=== PATIENT | male | born 1945 | race Caucasian/White ===

== ENCOUNTER 2019-12-29 06:47 | Inpatient (IN) | payer OTHER ==
[~2019-12-29] VITALS: Ht 180.3 cm; Wt 100.3 kg
[2019-12-29 09:18] LABS: Basophils # (auto) 0 10 ^3/uL (0-0.2); Basophils % (auto) 0.1 % (0.0-2.0); Eosinophils # (auto) 0 10 ^3/uL (0-0.8); Eosinophils % (auto) 0.1 % (0.0-7.0); Hematocrit 46.3 % (41.0-53.0); Hemoglobin 15.1 g/dL (13.5-17.5); Lymphocytes # (auto) 0.6 10 ^3/uL (0.4-5.4); Lymphocytes % (auto) 3.9 % (10.0-50.0); Mean Corpuscular Hemoglobin 29.3 pg (28.0-32.0); Mean Corpuscular Hgb Conc. 32.6 g/dL (32.0-36.0); Mean Corpuscular Volume 90.1 fL (80.0-100.0); Monocytes # (auto) 1.1 10 ^3/uL (0-1.3); Neutrophils # (auto) 13.9 10 ^3/uL (1.6-8.6); Neutrophils % (auto) 88.9 % (37.0-80.0); Platelet Count (auto) 215 10^3/uL (140-450); Red Blood Cells 5.14 10^6/uL (4.5-5.90); Red Cell Distribution Width 13.7 % (11.8-14.3); White Blood Cell 15.6 10^3/uL (4.4-10.8)
[2019-12-29 09:32] LABS: Lactic Acid w/Reflex 2.4 mmol/L (0.4-2.0)
[2019-12-29] MEDS ORDERED: MORPHINE SULF INJ 2 MG/ML SYRINGE 1ML IV ONE (09:45)
[2019-12-29] MEDS ORDERED: ONDANSETRON HCL 4 MG/2 ML VIAL IV ONE (09:45)
[2019-12-29 10:29] LABS: Urine WBC None Seen /hpf (0 - 3)
[2019-12-29 10:45] LABS: Urine Bacteria NONE SEEN /hpf (None Seen); Urine Blood Negative /uL (Negative); Urine Specific Gravity 1.028 (1.001-1.035)
[2019-12-29] MEDS ORDERED: PIPERACILLIN-TAZOB 3.375GM 100 ML IV ONE (10:45)
[2019-12-29] MEDS ORDERED: SODIUM CHLORIDE 0.9% 1,000 ML IV ONE ×3 (10:45→14:15)
[2019-12-29] MEDS ORDERED: metroNIDAZOLE 500MG/100ML 100 ML IV ONE ×2 (10:45→14:15)
[2019-12-29] MEDS ORDERED: POVIDONE IODINE 10 % TOPICAL OINT 30GM TOP ONE (11:01)
[2019-12-29 11:22] LABS: INR 1.08 (0.9-1.15)
[2019-12-29 11:33] LABS: Alanine Aminotransferase 33 U/L (16-61); Alkaline Phosphatase 81 U/L (45-117); Anion Gap 8 (5-15); Aspartate Aminotransferase 19 U/L (15-37); BUN/Creatinine Ratio 23.4; Blood Urea Nitrogen 26 mg/dL (7-18); Carbon Dioxide 24 mmol/L (21-32); Chloride 104 mmol/L (98-107); GFR African American 84 mL/min; GFR Non-African American 69 mL/min; Glucose 132 mg/dL (74-106); Potassium 3.9 mmol/L (3.5-5.1); Sodium 136 mmol/L (136-145)
[2019-12-29 11:34] LABS: Albumin 3.6 g/dL (3.4-5.0); Amylase 52 U/L (25-115); Bilirubin, Total 0.6 mg/dL (0.2-1.0); Calcium 8.6 mg/dL (8.5-10.1); Lipase 43 U/L (73-393); Magnesium 2.1 mg/dL (1.6-2.6); Total Protein 7.5 g/dL (6.4-8.2)
[2019-12-29] MEDS ORDERED: SUCCINYLCHOLINE CHLORIDE 20 MG/ML 10ML VIAL IV ONE (11:51)
[2019-12-29] MEDS ORDERED: LIDOCAINE 1% (LOCAL ANESTH.) PF 5ml SDV ONE (11:51)
[2019-12-29] MEDS ORDERED: MIDAZOLAM HCL 1MG/1ML-2 ML VIAL ONE ×2 (11:52→13:53)
[2019-12-29] MEDS ORDERED: ETOMIDATE (2MG/ML) 20ML VIAL IV ONE (11:53)
[2019-12-29] MEDS ORDERED: ROCURONIUM 10MG/ML 10ML VIAL IV ONE (11:55)
[2019-12-29] MEDS ORDERED: fentaNYL CITRATE 100 MCG/2 ML VL ONE (11:57)
[2019-12-29] MEDS ORDERED: LIDOCAINE HCL 2% TOP JELLY 5ML TOP ONE (12:26)
[2019-12-29] MEDS ORDERED: SODIUM CHLORIDE LOCK 10 ML ONE (12:37)
[2019-12-29] MEDS ORDERED: ePHEDrine SULFATE 50 MG/ML AMP ONE (12:37)
[2019-12-29] MEDS ORDERED: cefTRIAXone 1GM/50ML D5W 50 ML IV ONE (14:15)
[2019-12-29] MEDS ORDERED: MIDAZOLAM DRIP 50 mg/50mL 50 ML IV ONE ×3 (14:15→23:49)
[2019-12-29] MEDS ORDERED: HYDROmorphone HCL 2 MG/ML VL IM ONE (14:15)
[2019-12-29] MEDS ORDERED: D5W/SOD CHL 0.45%/KCL 20MEQ 1,000 ML IV ONE (14:15)
[2019-12-29 14:27] VITALS: BP 116/74
[2019-12-29] MEDS ORDERED: NALOXONE HCL 0.4 MG/ML VIAL IV PRN (14:30)
[2019-12-29] MEDS ORDERED: ONDANSETRON HCL 4 MG/2 ML VIAL IV PRN (14:30)
[2019-12-29] MEDS ORDERED: HYDROmorphone HCL 2 MG/ML VL IV PRN ×2 (14:30)
[2019-12-29] MEDS: HYDROmorphone HCL 2 MG/ML VL ONE ×2 (14:32→14:42)
[2019-12-29 15:00] VITALS: BP 116/74
[2019-12-29] MEDS ORDERED: NITROGLYCERIN 0.4 MG SL TAB SL PRN (18:00)
[2019-12-29] MEDS ORDERED: MORPHINE SULF INJ 2 MG/ML SYRINGE 1ML IV PRN (18:00)
[2019-12-29 18:53] VITALS: BP 102/58
[2019-12-29 19:37] VITALS: BP 106/58
[2019-12-29] MEDS: NOREPINEPHRINE 8 MG/250ML KIT 250 ML IV SCH (20:45)
[2019-12-29] MEDS: PROPOFOL 100 ML IV SCH (20:45)
[2019-12-29 21:30] VITALS: BP 117/53
[2019-12-29] MEDS: D5W/LACTATED RINGERS 1,000 ML IV SCH (23:31)
[2019-12-30] VITALS (78 sets, daily range): BP systolic 84–142; BP diastolic 49–78
--- NOTE | 2019-12-30 01:00 | NUR ---
ASSUMED CARE OF PT FROM PACU, PT S/P EXP LAP RIGHT COLON RESECTION WITH GANGRENE ISHEMIC BOWEL. MID ABD NOTED WITH 4X4 DRESSING. CLEAN, DRY, AND INTACT WITH LEFT GAMA DRAIN. PT MECHANICALLY INTUBATED WITH 7.5 ETT/ 22 CM AT THE LIP. AC 12 TV 500 FI02 40% AND PEEP 8. PT HAS D5 LR AND VERSAD @ 12 MG INFUSING WITHOUT DIFFICULTY. OGT NOTED TO LOW INTERMITTENT SUCTION, SCANT BROWNISH-GREEN FLUIDS NOTED. GIANG NOTED WITH CLEAR MELLY URINE. PT REPOSITIONED FOR COMFORT. SR-ST ON MONITOR. PT WARM TO TOUCH. CALL ALEXANDRE IN PLACE WILL MONITOR.
[2019-12-30 04:30] LABS: Lymphocytes % (auto) 10.2 % (10.0-50.0); Monocytes % (auto) 14.9 % (0.0-12.0); Neutrophils % (auto) 74.8 % (37.0-80.0); White Blood Cell 9.2 10^3/uL (4.4-10.8)
[2019-12-30 04:31] LABS: Basophils # (auto) 0 10 ^3/uL (0-0.2); Basophils % (auto) 0.1 % (0.0-2.0); Eosinophils # (auto) 0 10 ^3/uL (0-0.8); Hematocrit 38.9 % (41.0-53.0); Lymphocytes # (auto) 0.9 10 ^3/uL (0.4-5.4); Mean Corpuscular Hemoglobin 30.4 pg (28.0-32.0); Mean Corpuscular Hgb Conc. 33.5 g/dL (32.0-36.0); Mean Corpuscular Volume 90.5 fL (80.0-100.0); Monocytes # (auto) 1.4 10 ^3/uL (0-1.3); Neutrophils # (auto) 6.9 10 ^3/uL (1.6-8.6); Nucleated Red Blood Cells % 0.1 %; Platelet Count (auto) 183 10^3/uL (140-450); Red Blood Cells 4.29 10^6/uL (4.5-5.90); Red Cell Distribution Width 14.2 % (11.8-14.3)
[2019-12-30 05:03] LABS: Albumin 2.8 g/dL (3.4-5.0); BUN/Creatinine Ratio 16.1; Bilirubin, Total 0.7 mg/dL (0.2-1.0); Calcium 7.5 mg/dL (8.5-10.1); Phosphorus 2.1 mg/dL (2.5-4.90); Potassium 3.8 mmol/L (3.5-5.1)
--- NOTE | 2019-12-30 06:34 | NUR ---
Respiratory note: RECEIVED PATIENT ON V5 ESPRIT VENT ORALLY INTUBATED WITH A 7.5 ETT SECURED VIA MAGDA AT THE 22CM MARKING AT THE LIP, AND MECHANICALLY VENTILATED WITH THE CHARTED SETTINGS. SPO2 94%, LUNG SOUNDS DIM T/O. SKIN IS WARM/DRY TO THE TOUCH AND IS INTACT NEAR MAGDA SITE; THERE IS A BITE BLOCK IN PLACE. THERE IS A NGT PLACED IN THE LEFT NARE. PATIENT IS UNRESPONSIVE TO BOTH VERBAL/TACTILE STIMULI AND IS SEDATED ON A VERSED DRIP. HE IS RESTING COMFORTABLY AND TOLERATING VENT WELL, NO CHANGES MADE. VENT PLUGGED INTO RED OUTLET AND ALL ALARMS ARE SET AND AUDIBLE. WILL CONTINUE TO ASSESS PATIENT WELL VENTILATOR FUNCTION.
[2019-12-30] MEDS: ENOXAPARIN SOD 40 MG/0.4 ML SYRINGE SC SCH (09:58)
[2019-12-30] MEDS: PANTOPRAZOLE 40 MG/10 ML VIAL INJ IV SCH (09:58)
[2019-12-30] MEDS: D5W/LACTATED RINGERS 1,000 ML IV SCH ×4 (10:00→23:45)
[2019-12-30] MEDS: fentaNYL Drip 2500mCg/250mlNS 250 ML IV SCH (10:00)
[2019-12-30] MEDS: MIDAZOLAM DRIP 50 mg/50mL 50 ML IV SCH ×3 (10:02→23:36)
[2019-12-30] MEDS: PIPERACILLIN-TAZOB 3.375GM 100 ML IV SCH ×2 (11:00→18:46)
--- NOTE | 2019-12-30 11:30 | NUR ---
Cooling Measures applied. Patient currently has temp of 100.2 , cooling measures in place.
--- NOTE | 2019-12-30 11:34 | NUR ---
WOUND CARE NOTE: Wound care in to see patient for skin integrity monitoring due to low Estevan score of 11 and intubation status,putting patient to high risk for skin breakdown. Patient is 74 years old male admitted for Abdominal Pain. Patient is resting in ICU low air loss bed in Rm. 109. Patient is intubated, sedated and mechanically ventilated. Patient appears to be in no pain using [place] Sage Faces Pain Scale. Skin assessment done with the assistance of patient's nurse, RAMA Saucedo. Patient has no wound other than abdominal incision s/p Exploratory laparotomy, Rt. colectomy by Dr. Willson, yesterday 12/29/19. Patient's abdominal incision with C/D/I wound dressing. Patient admitted to ICU yesterday 12/29/19 from O.R. Patient's Rt lateral foot/ankle area noted with intact,indented scar, surrounding skin is pink, area is clean and dry,left open to air. Patient is receiving BID/PRN cleaning and application of Barrier cream to sacral, buttocks as preventative. Repositioned patient for comfort facing his Rt. side, redistributed pressure points with pillows. Patient tolerated well. RAMA Saucedo at bedside. RECOMMENDATION: Nursing to continue with BID/PRN cleaning and application of Barrier cream to sacral buttocks as preventative, frequent turning and repositioning schedule as condition permits, redistribute pressure points with pillows, elevate heels on pillows, continue monitoring by wound care while patient is intubated. Addendum: 12/30/19 at 1339 by Geneva Carrera RN Amended: Links added.
--- NOTE | 2019-12-30 13:38 | NUR ---
DR. GASCA PAGED TO DETERMINE WHEN OK TO PERFORM CPAP. PER MD OK TO TRY IN A.M. DR. GUERRA AWARE.
--- NOTE | 2019-12-30 13:44 | NUR ---
Report given to Rn Updated on plan of care. Patient moderately sedated. Tolerating ventilator well. Rn to continue care.
[2019-12-30] MEDS: metroNIDAZOLE 500MG/100ML 100 ML IV SCH ×2 (14:00→22:00)
--- NOTE | 2019-12-30 15:03 | NUR ---
RECEIVED REPORT FROM MARTIN ONTIVEROS PATIENT SEDATED WITH FENTABYL AND VERSED. PATIENT DENIES ANY PAIN. SURGICAL DRESSING INTACT DRY AND CLEAN. bOWEL SOUNDS VERY HYPOACTIVE. REMAINED INTUBATED WITH 40% FI02 ETT 7.5 22 LIPS TV 600 RATE 12. MRSA SWAB SENT TO LAB.
[2019-12-30] MEDS: PROPOFOL 100 ML IV SCH (20:45)
[2019-12-30] MEDS: NOREPINEPHRINE 8 MG/250ML KIT 250 ML IV SCH (20:45)
[2019-12-31] VITALS (89 sets, daily range): BP systolic 70–168; BP diastolic 38–111
[2019-12-31] MEDS: PIPERACILLIN-TAZOB 3.375GM 100 ML IV SCH ×3 (03:00→18:58)
[2019-12-31] MEDS: metroNIDAZOLE 500MG/100ML 100 ML IV SCH ×3 (06:00→22:00)
--- NOTE | 2019-12-31 08:15 | NUR ---
MD Dr.H. Alvarez at bedside updated on patient condition with no new orders at this time. Will continue to monitor patient closely.
[2019-12-31 08:22] LABS: Basophils # (auto) 0 10 ^3/uL (0-0.2); Basophils % (auto) 0.4 % (0.0-2.0); Eosinophils # (auto) 0.1 10 ^3/uL (0-0.8); Eosinophils % (auto) 0.9 % (0.0-7.0); Hematocrit 35.6 % (41.0-53.0); Hemoglobin 11.7 g/dL (13.5-17.5); Lymphocytes # (auto) 1.3 10 ^3/uL (0.4-5.4); Lymphocytes % (auto) 15.1 % (10.0-50.0); Mean Corpuscular Hgb Conc. 32.8 g/dL (32.0-36.0); Mean Corpuscular Volume 91.4 fL (80.0-100.0); Monocytes # (auto) 1.5 10 ^3/uL (0-1.3); Monocytes % (auto) 17.2 % (0.0-12.0); Neutrophils # (auto) 5.9 10 ^3/uL (1.6-8.6); Neutrophils % (auto) 66.4 % (37.0-80.0); Platelet Count (auto) 158 10^3/uL (140-450); White Blood Cell 8.9 10^3/uL (4.4-10.8)
[2019-12-31 08:48] LABS: Albumin 2.1 g/dL (3.4-5.0); BUN/Creatinine Ratio 11.5; Potassium 3.2 mmol/L (3.5-5.1)
[2019-12-31 08:50] LABS: Bilirubin, Total 0.8 mg/dL (0.2-1.0); Total Protein 5.2 g/dL (6.4-8.2)
--- NOTE | 2019-12-31 09:50 | NUR ---
MD Dr. Pedroza at bedside updated on patient condition with new orders regarding hypotension, this RN to input into system. Will carry put orders per MD.
[2019-12-31] MEDS: fentaNYL Drip 2500mCg/250mlNS 250 ML IV SCH ×2 (10:00→19:53)
[2019-12-31] MEDS ORDERED: SODIUM CHLORIDE 0.9% 500 ML IV ONE (10:15)
[2019-12-31] MEDS: PANTOPRAZOLE 40 MG/10 ML VIAL INJ IV SCH (10:23)
[2019-12-31] MEDS: ENOXAPARIN SOD 40 MG/0.4 ML SYRINGE SC SCH (10:23)
[2019-12-31] MEDS: D5W/LACTATED RINGERS 1,000 ML IV SCH ×2 (10:24→18:00)
[2019-12-31] MEDS: PHENYLEPHRINE IV 250 ML IV SCH ×2 (10:43→19:53)
--- NOTE | 2019-12-31 11:15 | NUR ---
FAMILY Received phone call from patients daughter Caron, confirmed password and updated on patient condition. Will continue to monitor patient closely.
[2019-12-31] MEDS: MORPHINE SULF INJ 2 MG/ML SYRINGE 1ML IV PRN (11:36)
--- NOTE | 2019-12-31 11:55 | NUR ---
TEMPERATURE Patients temperature orally has reached 100.4: cooling measures applied.
--- NOTE | 2019-12-31 12:15 | NUR ---
NEURO Patient continues to appear to be sedated: patient does not open eyes or follow commands but is moving upper/lower extremities. Will continue to monitor patient closely.
--- NOTE | 2019-12-31 12:37 | NUR ---
Nutrition Assessment Consider Jevity 1.2 at 65 ml/hr if TF is considered for pt Advance diet as medically feasible Est energy needs 8959-8002 kcal (18-20 kcal/kg BW 96kg) Est protein needs 70-84g (1-1.2g/kg IBW 70kg) Will monitor and reassess prn. Addendum: 12/31/19 at [address] Amended: Links added.
--- NOTE | 2019-12-31 14:30 | NUR ---
PRECEDEX/FENTANYL Turned off Precedex and re started Fentanyl at 25mcg.
--- NOTE | 2019-12-31 14:30 | NUR ---
MD Dr. Pedroza at bedside with new orders, this RN to input into system. Will carry out orders per MD.
--- NOTE | 2019-12-31 15:30 | NUR ---
MD Dr. Pedroza at bedside with new orders, this RN to input into system. Will carry out orders per MD. Will continue to monitor patient closely.
--- NOTE | 2019-12-31 16:30 | NUR ---
PRECEDEX Precedex turned back on at 0.2mcg.
--- NOTE | 2019-12-31 16:45 | NUR ---
IV IV to the right hand leaking with no blood return. Discontinued with catheter intact and new 20g IV to the left wrist inserted with no incident. Will continue to monitor patient closely.
--- NOTE | 2019-12-31 16:58 | NUR ---
UNABLE TO CPAP PT, PT OFF SEDATION BUT NOT WAKING UP. WILL CONTINUE WITH CPAP ORDERS TOMORROW AM
[2019-12-31] MEDS: POTASSIUM CHL 20MEQ/100ML 100 ML IV SCH ×2 (17:26→19:52)
--- NOTE | 2019-12-31 18:00 | NUR ---
OUTPUT GIANG 450ML NG TUBE 125ML GAMA 10ML
[2019-12-31] MEDS: PROPOFOL 100 ML IV SCH (20:45)
[2019-12-31] MEDS: NOREPINEPHRINE 8 MG/250ML KIT 250 ML IV SCH (20:45)
[2020-01-01] VITALS (91 sets, daily range): BP systolic 85–160; BP diastolic 39–78
[2020-01-01] MEDS: D5W/LACTATED RINGERS 1,000 ML IV SCH ×3 (02:00→18:00)
[2020-01-01] MEDS: PHENYLEPHRINE IV 250 ML IV SCH ×3 (02:55→19:35)
[2020-01-01] MEDS: PIPERACILLIN-TAZOB 3.375GM 100 ML IV SCH ×3 (03:00→19:00)
[2020-01-01] MEDS: metroNIDAZOLE 500MG/100ML 100 ML IV SCH ×3 (04:56→22:00)
--- NOTE | 2020-01-01 07:35 | NUR ---
SEDATION LIGHTENED GRADUALLY FOR CPAP THIS AM. PT WOKE UP JUST BEFORE 0600 AM AND IN SPITE OF HAVING BILAT MITTENS EXTUBATED HIMSELF. RT AT THE BEDSIDE, PLACED PT ON NRM, AND LATER ON COOL MIST MAINTAINING SATS IN THE MID 90'S.NT SUCTIONED TO ENSURE THE AIRWAY IS CLEAR. PT REMAINS RESTLESS BUT NOT TACCHYPNEIC, RT REMAINS AT THE BEDSIDE.
[2020-01-01 07:53] LABS: BUN/Creatinine Ratio 7.5; Calcium 7.5 mg/dL (8.5-10.1); Potassium 3.5 mmol/L (3.5-5.1)
[2020-01-01 07:56] LABS: Bilirubin, Total 0.9 mg/dL (0.2-1.0); Total Protein 5.3 g/dL (6.4-8.2)
--- NOTE | 2020-01-01 08:40 | NUR ---
MD Dr. Elizabeth Alvarez called and aware of self extubation and agitation with new orders, this RN to input into system.
[2020-01-01] MEDS ORDERED: FUROSEMIDE 40 MG/4 ML VIAL IV ONE (08:45)
--- NOTE | 2020-01-01 08:45 | NUR ---
MD Dr. Pedroza called to notify of self extubation and post extubation ABG with no new orders and states" will be in shortly to see patient." MD also aware of agitation: increase body movement( Non purposeful) and heart rate of 150's.
[2020-01-01] MEDS: MORPHINE SULF INJ 2 MG/ML SYRINGE 1ML IV PRN (08:52)
--- NOTE | 2020-01-01 09:10 | NUR ---
MD Dr. Nava at bedside and updated on patient condition with no new orders. aware that Haldol was placed on hold.
--- NOTE | 2020-01-01 09:20 | NUR ---
MD Dr. Pedroza at bedside updated on patient condition with new orders to re intubated patient for airway protection. Will carry out MD orders. RT Shellie at bedside and aware of re-intubation.
[2020-01-01] MEDS ORDERED: ROCURONIUM 10MG/ML 10ML VIAL IV ONE ×2 (09:25→09:26)
[2020-01-01] MEDS ORDERED: ETOMIDATE (2MG/ML) 20ML VIAL IV ONE ×2 (09:25→09:26)
[2020-01-01] MEDS ORDERED: SUCCINYLCHOLINE CHLORIDE 20 MG/ML 10ML VIAL IV ONE (09:26)
[2020-01-01] MEDS ORDERED: HALOPERIDOL LACTATE 5 MG/ML INJ VIAL IM ONE (09:30)
--- NOTE | 2020-01-01 09:37 | NUR ---
INTUBATION Re- intubated patient with Shellie Ibrahim RT and this RN. Sedated with Etomidate at 12mg and SUJATHA 50mg. Patient tolerated well. Started Fentanyl at 125mcg per MD. ET tube at 8.0 and 24 at the lip with previous vent settings. Will continue to monitor patient.
[2020-01-01] MEDS: FLUCONAZOLE 200MG/100ML 100 ML IV SCH (10:04)
[2020-01-01] MEDS: ENOXAPARIN SOD 40 MG/0.4 ML SYRINGE SC SCH (10:04)
[2020-01-01] MEDS: PANTOPRAZOLE 40 MG/10 ML VIAL INJ IV SCH (10:04)
--- NOTE | 2020-01-01 10:45 | NUR ---
FAMILY Received phone call from patients daughter Caron, confirmed password, updated on patient condition and plan of care. Will continue to monitor patient.
--- NOTE | 2020-01-01 10:55 | NUR ---
MIDLINE PLACEMENT Midline placement 18G place by PICC line nurse. Will continue to monitor patient closely.
--- NOTE | 2020-01-01 11:30 | NUR ---
MD Dr. Pedroza aware of post intubation chest x-ray with no new orders.
--- NOTE | 2020-01-01 13:15 | NUR ---
MD Dr. Willson at bedside updated on patient condition with no new orders.
[2020-01-01] MEDS: MIDAZOLAM DRIP 50 mg/50mL 50 ML IV SCH (14:00)
--- NOTE | 2020-01-01 14:00 | NUR ---
VERSED Versed started per protocol secondary to patient awaking and attempting to pull on lines and equipment. Will continue to titrate as tolerated by patient.
--- NOTE | 2020-01-01 16:00 | NUR ---
TEMPERATURE Patients temperature reached 100.5 orally, cooling measures applied.
[2020-01-01] MEDS: PROPOFOL 100 ML IV SCH (20:45)
[2020-01-01] MEDS: fentaNYL Drip 2500mCg/250mlNS 250 ML IV SCH (20:45)
[2020-01-01] MEDS: NOREPINEPHRINE 8 MG/250ML KIT 250 ML IV SCH (20:45)
[2020-01-02] VITALS (94 sets, daily range): BP systolic 95–152; BP diastolic 42–74
[2020-01-02] MEDS: D5W/LACTATED RINGERS 1,000 ML IV SCH ×3 (02:00→18:40)
[2020-01-02] MEDS: PIPERACILLIN-TAZOB 3.375GM 100 ML IV SCH ×3 (03:00→18:39)
[2020-01-02] MEDS: PHENYLEPHRINE IV 250 ML IV SCH ×3 (03:55→20:35)
[2020-01-02 04:34] LABS: Basophils # (auto) 0 10 ^3/uL (0-0.2); Basophils % (auto) 0.5 % (0.0-2.0); Eosinophils # (auto) 0.2 10 ^3/uL (0-0.8); Eosinophils % (auto) 2.8 % (0.0-7.0); Hematocrit 31.6 % (41.0-53.0); Hemoglobin 10.3 g/dL (13.5-17.5); Lymphocytes # (auto) 1.6 10 ^3/uL (0.4-5.4); Lymphocytes % (auto) 20.5 % (10.0-50.0); Mean Corpuscular Hemoglobin 29.5 pg (28.0-32.0); Mean Corpuscular Hgb Conc. 32.6 g/dL (32.0-36.0); Mean Corpuscular Volume 90.6 fL (80.0-100.0); Monocytes # (auto) 1.3 10 ^3/uL (0-1.3); Monocytes % (auto) 16.1 % (0.0-12.0); Neutrophils # (auto) 4.7 10 ^3/uL (1.6-8.6); Neutrophils % (auto) 60.1 % (37.0-80.0); Platelet Count (auto) 186 10^3/uL (140-450); Red Blood Cells 3.48 10^6/uL (4.5-5.90); Red Cell Distribution Width 13.5 % (11.8-14.3); White Blood Cell 7.8 10^3/uL (4.4-10.8)
[2020-01-02 05:16] LABS: Albumin 1.8 g/dL (3.4-5.0); BUN/Creatinine Ratio 9.3; Bilirubin, Total 0.6 mg/dL (0.2-1.0); Calcium 7.2 mg/dL (8.5-10.1); Total Protein 4.9 g/dL (6.4-8.2)
[2020-01-02 05:31] LABS: Potassium 2.8 mmol/L (3.5-5.1)
[2020-01-02] MEDS: metroNIDAZOLE 500MG/100ML 100 ML IV SCH ×3 (06:00→23:07)
--- NOTE | 2020-01-02 10:06 | NUR ---
AT BEDSIDE; Dr. Elizabeth Alvarez at bedside, orders received.
--- NOTE | 2020-01-02 10:20 | NUR ---
Pt will need to be reassessed closer to discharge due to being currently intubated. Prior to hospitalization pt was residing with family. Pt has a son, Josh, and daughter Caron, who are involved and provide assistance. Will follow up and provide intervention as appropriate. Addendum: 01/02/20 at 1346 by LEEROY MARSHALL Amended: Links added.
[2020-01-02] MEDS: PANTOPRAZOLE 40 MG/10 ML VIAL INJ IV SCH (10:25)
[2020-01-02] MEDS: FLUCONAZOLE 200MG/100ML 100 ML IV SCH (10:25)
[2020-01-02] MEDS: ENOXAPARIN SOD 40 MG/0.4 ML SYRINGE SC SCH (10:25)
[2020-01-02] MEDS: POTASSIUM CHL 20MEQ/100ML 100 ML IV SCH ×3 (10:25→16:58)
--- NOTE | 2020-01-02 11:18 | NUR ---
Nutrition Followup Note Wt 96.0kg Pt remains intubated and lightly sedated with fentanyl. Pt self extubated 12/31 and was reintubated 12/31 per MD note. Pt is NPO with no alternate nutrition ordered. Pt is possible CPAP and advance to clear liquid diet per MD note, will monitor if diet is advanced and tolerance of diet. Consider TF of Jevity 1.2 at a goal rate of 65 ml/hr per MD approval. Consider checking pt HgbA1C, pt with no history of DM, change to Glucerna if pt new DM Est energy needs 1679-3975 kcal (18-20 kcal/kg BW 96kg) Est protein needs 70-84g (1-1.2g/kg IBW 70kg) Will monitor and reassess prn. Labs: K 2.8L, Alb 1.8L, Ca 7.2L, GLUC 130H BM: No BM noted per RN note Skin: BS 11 high risk, full details in elderly caregiver note. PES: Inadequate oral intake r/t current medical condition aeb pt with NPO diet order Comments: 1) Continue to monitor po intake, labs, skin 2) refer pt to OPd on Dc 3) Continue current plan of care Expected Outcomes/Goals: 1) Consider Jevity 1.2 at a goal rate of 65 ml/hr if TF is considered for pt 2) advance diet as medically feasible 3) pt to maintain wt while in hospital 4) f/u 2-3 days
--- NOTE | 2020-01-02 12:00 | NUR ---
Cooling Measures applied. Patient currently has temp of 100.8 , cooling measures in place.
--- NOTE | 2020-01-02 14:00 | NUR ---
DRESSING CHANGE; Dressing to abd incision removed. Incisional area cleansed with Chloraprep, jose c intact edges well approximated. Abd placed over incision, secured with Medipore tape.
[2020-01-02] MEDS: fentaNYL Drip 2500mCg/250mlNS 250 ML IV SCH (14:28)
[2020-01-02] MEDS ORDERED: ALBUTEROL SULF 2.5 MG/0.5ML(0.5%) NEB SOLN ONE (18:34)
--- NOTE | 2020-01-02 19:30 | NUR ---
report received and assumed care; see interventions for assessment; vs stable at this with exception to o2 sats are 90-91%-suctioned and increased fio2; see iv spreadsheet for gtts; pt. is facial grimace and restless; will increase sedation accordingly/protocol and cont. to monitor.
--- NOTE | 2020-01-02 21:30 | NUR ---
providing pt. with complete bed bath and linen change; pt. tolerated fair; will monitor.
[2020-01-03] VITALS (87 sets, daily range): BP systolic 86–149; BP diastolic 35–72
[2020-01-03] MEDS: D5W/LACTATED RINGERS 1,000 ML IV SCH ×4 (02:00→22:02)
[2020-01-03] MEDS: PIPERACILLIN-TAZOB 3.375GM 100 ML IV SCH ×3 (03:00→18:46)
[2020-01-03] MEDS: metroNIDAZOLE 500MG/100ML 100 ML IV SCH ×3 (06:36→21:51)
--- NOTE | 2020-01-03 07:35 | NUR ---
ASSESS- PT. LYING IN BED ON VENT SIZE #8.0 ET, 24 AT THE LIP, AC-12, TV-600, PEEP-5, FIO2-40%. LUNGS CLEAR DELMAR. INSPIRATORY AND EXPIRATORY, DIMINISHED THROUGHOUT AND BASES DELMAR. PT. HAS GAG/COUGH REFLEX. PUPILS 3 AND SLUGGISH DELMAR. RESPONDS TO PAINFUL/TACTILE STIMULI. NO MOVEMENT OF EXTREMITIES SEEN. ON VERSED GTT. AT 5 MG./HR. AND FENTANYL GTT. AT 200 MCG. DELMAR. HAND MITTENS IN PLACE TO PREVENT PULLING OF TUBES. ABD. SOFT, ROUND, LG. BOWEL SOUNDS HYPOACTIVE ALL FOUR QUADRANTS. NGT RT. NARE TO LCS WITH BILE DRAINAGE IN TUBING ONLY. F/C TO GRAVITY WITH DK. MELLY CLOUDY URINE WITH SEDIMENT. RADIAL PULSES STRONG, PALPABLE DELMAR. DORSALIS PEDAL PULSES STRONG, PALPABLE DELMAR. SCD'S DELMAR. LE INTACT. NON-PITTING EDEMA ARMS AND LEGS DELMAR. MID-LINE ABD. INCISION WITH DSG. D/I. GAMA TO ABD. TO BULB SUCTION WITH SEROSANGINOUS DRAINAGE. MID-LINE SARAH INTACT.
[2020-01-03] MEDS: PANTOPRAZOLE 40 MG/10 ML VIAL INJ IV SCH (10:00)
[2020-01-03] MEDS: ENOXAPARIN SOD 40 MG/0.4 ML SYRINGE SC SCH (10:09)
[2020-01-03] MEDS: FLUCONAZOLE 200MG/100ML 100 ML IV SCH (10:09)
--- NOTE | 2020-01-03 10:22 | NUR ---
DR. Elizabeth LÓPEZ Provider/Hospitalist at bedside. GAVE UPDATE ON PT. NEW ORDERS RECEIVED.
[2020-01-03] MEDS: NOREPINEPHRINE 8 MG/250ML KIT 250 ML IV SCH ×2 (11:00→20:45)
[2020-01-03] MEDS: PROPOFOL 100 ML IV SCH ×2 (11:00→20:45)
[2020-01-03] MEDS: MIDAZOLAM DRIP 50 mg/50mL 50 ML IV SCH ×2 (11:41→20:45)
[2020-01-03] MEDS: fentaNYL Drip 2500mCg/250mlNS 250 ML IV SCH ×2 (11:45→16:22)
[2020-01-03] MEDS: PHENYLEPHRINE IV 250 ML IV SCH ×3 (11:45→21:35)
--- NOTE | 2020-01-03 12:12 | NUR ---
Respiratory note: VENT CHANGE PER , RR FROM 12 TO 18, VT FROM 600 TO 500. NO FOLLOW UP ABG NEEDED.
--- NOTE | 2020-01-03 12:12 | NUR ---
DR. GUERRA Provider/Hospitalist at bedside. GAVE UPDATE ON PT. NEW ORDERS RECEIVED. PT'S. DTG. WANTED TO SPEAK WITH MD. INFORMED DR. GUERRA AND CALLED PT'S. DTGRomina ZHENG AND DR. GUERRA SPOKE WITH HER OVER THE PHONE AND GAVE UPDATE.
[2020-01-04] VITALS (86 sets, daily range): BP systolic 98–175; BP diastolic 47–80
[2020-01-04] MEDS: PIPERACILLIN-TAZOB 3.375GM 100 ML IV SCH ×3 (03:09→18:38)
--- NOTE | 2020-01-04 04:00 | NUR ---
COOLING MEASURES ICE PACKS ARE COLD COMPRESS APPLIED FOR HYPERTHERMIA. Addendum: 01/05/20 at 0316 by Alex Lopez RN ICE PACKS AND COLD COMPRESS APPLIED FOR HYPERTHERMIA.
--- NOTE | 2020-01-04 06:00 | NUR ---
SEDATION SEDATION DECREASED FOR CPAP TRIAL IN AM.
[2020-01-04] MEDS: metroNIDAZOLE 500MG/100ML 100 ML IV SCH ×3 (06:22→21:42)
[2020-01-04] MEDS: D5W/LACTATED RINGERS 1,000 ML IV SCH ×3 (06:25→21:43)
--- NOTE | 2020-01-04 07:50 | NUR ---
Dr. Alvarez at bedside.
--- NOTE | 2020-01-04 08:30 | NUR ---
Dr. Luna at bedside.
[2020-01-04] MEDS: ENOXAPARIN SOD 40 MG/0.4 ML SYRINGE SC SCH (10:03)
[2020-01-04] MEDS: FLUCONAZOLE 200MG/100ML 100 ML IV SCH (10:03)
[2020-01-04] MEDS: PANTOPRAZOLE 40 MG/10 ML VIAL INJ IV SCH (10:03)
[2020-01-04 10:31] LABS: Basophils # (auto) 0.1 10 ^3/uL (0-0.2); Basophils % (auto) 0.6 % (0.0-2.0); Eosinophils # (auto) 0.3 10 ^3/uL (0-0.8); Eosinophils % (auto) 3.4 % (0.0-7.0); Hematocrit 33.3 % (41.0-53.0); Hemoglobin 11.1 g/dL (13.5-17.5); Lymphocytes # (auto) 1.4 10 ^3/uL (0.4-5.4); Lymphocytes % (auto) 16.3 % (10.0-50.0); Mean Corpuscular Hemoglobin 30.2 pg (28.0-32.0); Mean Corpuscular Hgb Conc. 33.2 g/dL (32.0-36.0); Mean Corpuscular Volume 90.8 fL (80.0-100.0); Monocytes # (auto) 1.1 10 ^3/uL (0-1.3); Monocytes % (auto) 13.5 % (0.0-12.0); Neutrophils # (auto) 5.5 10 ^3/uL (1.6-8.6); Neutrophils % (auto) 66.2 % (37.0-80.0); Platelet Count (auto) 252 10^3/uL (140-450); Red Blood Cells 3.67 10^6/uL (4.5-5.90); Red Cell Distribution Width 14.1 % (11.8-14.3); White Blood Cell 8.4 10^3/uL (4.4-10.8)
[2020-01-04 10:33] LABS: Potassium 3.7 mmol/L (3.5-5.1)
[2020-01-04 10:40] LABS: Albumin 1.9 g/dL (3.4-5.0); BUN/Creatinine Ratio 12.8; Bilirubin, Total 0.4 mg/dL (0.2-1.0); Calcium 7.6 mg/dL (8.5-10.1); Total Protein 5.6 g/dL (6.4-8.2)
--- NOTE | 2020-01-04 10:50 | NUR ---
Urine sample and Covid swab obtained and sent to lab.
[2020-01-04] MEDS ORDERED: ACETAMINOPHEN 650 mg PER 20.3 mL UD PO PRN (11:15)
--- NOTE | 2020-01-04 11:35 | NUR ---
Dr. Pedroza at the patient's bedside.
--- NOTE | 2020-01-04 13:26 | NUR ---
Nutrition Followup Note Wt 102.0 kg Pt remains intubated and lightly sedated with fentanyl. Pt is NPO with planned CPAP trial today. Est energy needs 5620-8568 kcal (18-20 kcal/kg BW 96kg) Est protein needs 70-84g (1-1.2g/kg IBW 70kg) Will monitor and reassess prn. Labs: K 2.8 L, Alb 1.8 L, Ca 7.2 L, GLUC 130 H BM: No BM noted today per RN note Skin: BS 14 mod risk, full details in regular senior care provider note. PES: Inadequate oral intake r/t current medical condition aeb pt with NPO diet order Comments: 1) Continue to monitor po intake, labs, skin 2) refer pt to OPd on Dc 3) Continue current plan of care Expected Outcomes/Goals: 1) Consider Jevity 1.2 at a goal rate of 65 ml/hr if TF is considered for pt 2) advance diet as medically feasible 3) pt to maintain wt while in hospital 4) f/u 2-3 days
--- NOTE | 2020-01-04 14:56 | NUR ---
Patient's daughter updated appropriately. Kevin questions and concerns addressed.
--- NOTE | 2020-01-04 20:00 | NUR ---
COOLING MEASURES TEMP 101.1 F RECTALLY.ICE PACKS AND COLD COMPRESS APPLIED.
[2020-01-04] MEDS: MORPHINE SULF INJ 2 MG/ML SYRINGE 1ML IV PRN (20:44)
[2020-01-04] MEDS: fentaNYL Drip 2500mCg/250mlNS 250 ML IV SCH (20:45)
[2020-01-05] VITALS (81 sets, daily range): BP systolic 92–184; BP diastolic 29–90
[2020-01-05] MEDS: MORPHINE SULF INJ 2 MG/ML SYRINGE 1ML IV PRN ×3 (00:32→21:39)
--- NOTE | 2020-01-05 01:00 | NUR ---
Patient bathe/linen change Patient given complete bath. Skin integrity assessed for any changes. Linens changed. Patient repositioned for comfort.
--- NOTE | 2020-01-05 02:00 | NUR ---
ASSESSMENT PATIENT IS HYPERTHERMIC, TACHYCARDIC, TACHYPNEIC AND HYPERTENSIVE. COOLING MEASURES AND PAIN MEDS WERE GIVEN, BUT CONDITION IS NOT IMPROVING. PER SURGEON, PATIENT IS NPO SO TYLENOL PO WAS HELD. WILL NOTIFY HOSPITALIST.
[2020-01-05] MEDS ORDERED: PROPOFOL 100 ML IV ONE (02:29)
[2020-01-05] MEDS ORDERED: ACETAMINOPHEN 650 MG RECT SUPP PR ONE (02:29)
[2020-01-05] MEDS ORDERED: ACETAMINOPHEN 650 MG RECT SUPP PR PRN (02:30)
--- NOTE | 2020-01-05 02:30 | NUR ---
MD returned call Hopitalist returned call, updated on patient status and reason for call, orders received. Continue care.
[2020-01-05] MEDS: PIPERACILLIN-TAZOB 3.375GM 100 ML IV SCH ×3 (02:51→18:34)
[2020-01-05] MEDS: metroNIDAZOLE 500MG/100ML 100 ML IV SCH ×3 (05:38→21:37)
[2020-01-05] MEDS: D5W/LACTATED RINGERS 1,000 ML IV SCH ×2 (06:30→15:46)
--- NOTE | 2020-01-05 07:15 | NUR ---
REPORT RECEIVED FROM POND SAWYER NURSE. PATIENT RESTING IN BED INTUBATED AND LIGHTLY SEDATED. RESPIRATIONS EVEN AND UNLABORED. NO SIGNS OF ACUTE DISTRESS NOTED. BED IN LOW POSITION. WILL CONTINUE TO MONITOR.
--- NOTE | 2020-01-05 08:38 | NUR ---
DR Dimas LÓPEZ AT BEDSIDE TO ASSESS PATIENT AND DISCUSS PLAN OF CARE. PER MD CT ABD/PELVIC WITH CONTRAST IF OK WITH DR BAINS. PER MD START PATIENT ON TPN AND CONSENT FOR PICC LINE. ALL ORDERS NOTED IN CHART.
[2020-01-05 08:48] LABS: Basophils # (auto) 0.1 10 ^3/uL (0-0.2); Basophils % (auto) 1.1 % (0.0-2.0); Eosinophils # (auto) 0.3 10 ^3/uL (0-0.8); Eosinophils % (auto) 3.3 % (0.0-7.0); Hematocrit 30.6 % (41.0-53.0); Hemoglobin 10.1 g/dL (13.5-17.5); Lymphocytes # (auto) 1.4 10 ^3/uL (0.4-5.4); Lymphocytes % (auto) 17.2 % (10.0-50.0); Mean Corpuscular Hgb Conc. 33.1 g/dL (32.0-36.0); Mean Corpuscular Volume 90.6 fL (80.0-100.0); Monocytes % (auto) 11.9 % (0.0-12.0); Neutrophils # (auto) 5.4 10 ^3/uL (1.6-8.6); Neutrophils % (auto) 66.5 % (37.0-80.0); Nucleated Red Blood Cells % 0.1 %; Platelet Count (auto) 260 10^3/uL (140-450); Red Blood Cells 3.38 10^6/uL (4.5-5.90); Red Cell Distribution Width 13.9 % (11.8-14.3); White Blood Cell 8.1 10^3/uL (4.4-10.8)
[2020-01-05 09:06] LABS: Albumin 1.7 g/dL (3.4-5.0); BUN/Creatinine Ratio 7.1; Calcium 7.3 mg/dL (8.5-10.1); Potassium 3.3 mmol/L (3.5-5.1)
[2020-01-05 09:09] LABS: Bilirubin, Total 0.4 mg/dL (0.2-1.0)
[2020-01-05 09:18] LABS: INR 1.29 (0.9-1.15)
[2020-01-05] MEDS: ENOXAPARIN SOD 40 MG/0.4 ML SYRINGE SC SCH (10:16)
[2020-01-05] MEDS: FLUCONAZOLE 200MG/100ML 100 ML IV SCH (10:16)
[2020-01-05] MEDS: PANTOPRAZOLE 40 MG/10 ML VIAL INJ IV SCH (10:16)
--- NOTE | 2020-01-05 10:23 | NUR ---
LEFT MESSAGE FOR DR BAINS TO INFORM OF REDNESS NOTED TO INCISION SITE WELL DR Dimas LÓPEZ ORDERING CT IF CLEARED BY HIM. PER OK FOR PICC LINE AND CT.
--- NOTE | 2020-01-05 11:43 | NUR ---
DR NIX ON UNIT TO DISCUSS PLAN OF CARE.
--- NOTE | 2020-01-05 12:05 | NUR ---
CONSENTS OBTAINED FROM DAUGHTER NORM VIA TELEPHONE FOR CT ABD/PELVIC WITH IV CONTRAST WELL PICC LINE PLACEMENT FOR TPN. ALL QUESTIONS AND CONCERNS ADDRESSED AT THIS TIME. CHARGE NURSE MAI ALBERTO CONSENTED.
[2020-01-05] MEDS ORDERED: TPN PER PHARMACY 0 ML IV SCH (12:45)
[2020-01-05 13:43] LABS: Magnesium 2.1 mg/dL (1.6-2.6); Phosphorus 2.3 mg/dL (2.5-4.90)
--- NOTE | 2020-01-05 13:52 | NUR ---
DR BAINS AT BEDSIDE TO ASSESS PATIENT AND DISCUSS PLAN OF CARE. MD MADE AWARE CT IS STILL PENDING FOR THIS AFTERNOON. MD ALSO MADE AWARE OF REDNESS NOTED TO MIS ABDOMINAL INCISION AROUND THE UMBILICUS. PER MD KEEP INCISION DELIVERY STOCK CLERK.
[2020-01-05 13:57] LABS: Pre Albumin 7.9 mg/dL (20.0-40.0)
--- NOTE | 2020-01-05 13:57 | NUR ---
LEFT MESSAGE FOR DR Dimas LÓPEZ FOR POTASSIUM OF 3.3, AWAITING CALL BACK.
--- NOTE | 2020-01-05 13:59 | NUR ---
SPOKE TO DR Dimas LÓPEZ ABOUT PATIENTS POTASSIUM OF 3.3, PER MD ADMINISTER 40MEQ POTASSIUM IVPB. ALL ORDERS NOTED IN CHART.
[2020-01-05] MEDS ORDERED: IOHEXOL 300 MG/ML 100ML BOTTLE IJ ONE (14:45)
[2020-01-05] MEDS: PROPOFOL 100 ML IV SCH ×2 (15:00→20:15)
--- NOTE | 2020-01-05 15:05 | NUR ---
PATIENT TAKEN VIA BED CONNECTED TO PORTABLE MONITOR AND VENTILATOR TO RADIOLOGY FOR CT SCAN. VITAL SIGNS STABLE. CHARGE NURSE AND RESPIRATORY THERAPIST WELL AUTO BODY REPAIRMAN AT BEDSIDE.
--- NOTE | 2020-01-05 15:20 | NUR ---
PATIENT RETURNED TO ROOM CONNECTED TO BEDSIDE MONITOR AND LINENS CHANGED. NO SIGNS OF ACUTE DISTRESS NOTED. BED IN LOW POSITION. WILL CONTINUE TO MONITOR.
--- NOTE | 2020-01-05 15:28 | NUR ---
RT Transport Note: Patient transported to CT with RAMA ONEILL. Patient transported to and from procedure on ventilator with previous ordered settings. Patient on senior sql database developer with alarms set and audible, ambu-bag/mask connected to 02 tank. Patient returned to room with no adverse reaction noted. Transport completed without incident.
[2020-01-05] MEDS: POTASSIUM CHL 20MEQ/100ML 100 ML IV SCH ×2 (15:45→17:27)
[2020-01-05] MEDS ORDERED: SODIUM PHOSPHATES 24 MEQ in SODIUM CHL 0.9% 100 ML IV ONE (18:00)
[2020-01-05] MEDS ORDERED: PPN PER PHARMACY IV NR ×6 (20:00)
[2020-01-05] MEDS: fentaNYL Drip 2500mCg/250mlNS 250 ML IV SCH (20:45)
[2020-01-06] VITALS (88 sets, daily range): BP systolic 89–189; BP diastolic 28–93
[2020-01-06] MEDS ORDERED: DEXTROSE (50%) 50ML SYRG IV SCH
[2020-01-06] MEDS: POTASSIUM CHL 20MEQ/100ML 100 ML IV SCH ×3 (00:29→04:15)
[2020-01-06] MEDS: PROPOFOL 100 ML IV SCH ×2 (00:30→12:05)
[2020-01-06] MEDS: D5W/LACTATED RINGERS 1,000 ML IV SCH ×2 (02:00→10:00)
[2020-01-06] MEDS: PIPERACILLIN-TAZOB 3.375GM 100 ML IV SCH ×3 (03:00→18:21)
[2020-01-06] MEDS: metroNIDAZOLE 500MG/100ML 100 ML IV SCH ×3 (05:56→22:00)
[2020-01-06] MEDS: InsuLIN REG 1unit/0.01ml Soln (100units/ml) SC SCH ×4 (05:58→18:00)
[2020-01-06] MEDS: ACCU-CHEK COMFORT CURVE STRIP VI SCH ×4 (05:58→18:20)
--- NOTE | 2020-01-06 07:00 | NUR ---
REPORT RECEIVED FROM MEDIA ARTS PROFESSOR NURSE. PATIENT RESTING IN BED INTUBATED AND SEDATED. RESPIRATIONS EVEN AND UNLABORED. NO SIGNS OF ACUTE DISTRESS NOTED. BED IN LOW POSITION. WILL CONTINUE TO MONITOR.
--- NOTE | 2020-01-06 09:02 | NUR ---
CARE TRANSITION COORDINATOR AT BEDSIDE FOR THYROID ULTRASOUND
--- NOTE | 2020-01-06 09:15 | NUR ---
DR Dimas LÓPEZ AT BEDSIDE TO ASSESS PATIENT AND DISCUSS PLAN OF CARE. ALL ORDERS NOTED IN CHART. Addendum: 01/06/20 at 1027 by Christina Restrepo RN PER MD KEEP PATIENT SEDATED FOR TODAY.
--- NOTE | 2020-01-06 09:22 | NUR ---
KAYLA LASSITER SUPERVISORY GEOGRAPHER AT BEDSIDE FOR CARDIO CONSULT. SPOKE TO DR Dimas LÓPEZ ABOUT CONSULT. WILL ORDER ECHO AND LAB WORK. ALL ORDERS NOTED IN CHART.
--- NOTE | 2020-01-06 09:49 | NUR ---
CARDIOLOGY CONSULT Cardiology consult completed, Paged Dr. Lira. Awaiting for call back.
[2020-01-06] MEDS ORDERED: ENOXAPARIN SOD 60 MG/0.6 ML SYRINGE SC ONE (09:53)
[2020-01-06] MEDS: ENOXAPARIN SOD 40 MG/0.4 ML SYRINGE SC SCH (10:09)
[2020-01-06] MEDS: FLUCONAZOLE 200MG/100ML 100 ML IV SCH (10:09)
[2020-01-06] MEDS: PANTOPRAZOLE 40 MG/10 ML VIAL INJ IV SCH (10:09)
--- NOTE | 2020-01-06 11:00 | NUR ---
WOUND CARE NOTE: WOUND CARE TEAM IS MONITORING PATIENT FOR SKIN INTEGRITY D/T LOW MARCELO SCORES/INTUBATION STATUS. PATIENT REMAINS INTUBATED, SEDATED. CURRENT MARCELO SCORE IS 13. PATIENT HAS SURGICAL INCISION TO ABDOMEN. NO OTHER SKIN INTEGRITY ISSUES NOTED AT THIS TIME. RECOMMEND: CONTINUATION WITH ALL WOUND CARE ORDERS, PREVIOUSLY PRESCRIBED BY MD. WOUND CARE TEAM WILL CONTINUE TO MONITOR.
[2020-01-06 11:07] LABS: Basophils # (auto) 0 10 ^3/uL (0-0.2); Basophils % (auto) 0.5 % (0.0-2.0); Eosinophils # (auto) 0.3 10 ^3/uL (0-0.8); Eosinophils % (auto) 3.8 % (0.0-7.0); Hematocrit 34.4 % (41.0-53.0); Hemoglobin 11.3 g/dL (13.5-17.5); Lymphocytes # (auto) 1.2 10 ^3/uL (0.4-5.4); Lymphocytes % (auto) 14.5 % (10.0-50.0); Mean Corpuscular Hemoglobin 29.6 pg (28.0-32.0); Mean Corpuscular Volume 89.6 fL (80.0-100.0); Monocytes # (auto) 0.7 10 ^3/uL (0-1.3); Monocytes % (auto) 9.3 % (0.0-12.0); Neutrophils # (auto) 5.7 10 ^3/uL (1.6-8.6); Neutrophils % (auto) 71.9 % (37.0-80.0); Platelet Count (auto) 352 10^3/uL (140-450); Red Blood Cells 3.84 10^6/uL (4.5-5.90); Red Cell Distribution Width 13.9 % (11.8-14.3)
[2020-01-06 11:24] LABS: Albumin 1.8 g/dL (3.4-5.0); Calcium 7.8 mg/dL (8.5-10.1); Potassium 3.7 mmol/L (3.5-5.1)
[2020-01-06 11:35] LABS: BUN/Creatinine Ratio 9.7; Bilirubin, Total 0.3 mg/dL (0.2-1.0); Phosphorus 2.3 mg/dL (2.5-4.90); Total Protein 5.4 g/dL (6.4-8.2)
[2020-01-06] MEDS ORDERED: ASPirin 81 mg TAB PO SCH (12:02)
[2020-01-06] MEDS: MORPHINE SULF INJ 2 MG/ML SYRINGE 1ML IV PRN ×2 (12:05→18:00)
[2020-01-06] MEDS ORDERED: D5W/LACTATED RINGERS 1,000 ML IV SCH ×2 (12:30→20:00)
--- NOTE | 2020-01-06 12:37 | NUR ---
SPOKE TO DR BAINS TO CLARIFY FLUID ORDER. PER MD STOP D5LR DRIP NOW THAT PATIENT IS ON TPN. PER MD ADMINISTER LASIX 20MG IVP X1 DOSE. ALL ORDERS NOTED IN CHART.
[2020-01-06] MEDS ORDERED: FUROSEMIDE 20 MG/2 ML VIAL ONE (12:43)
[2020-01-06] MEDS ORDERED: FUROSEMIDE 20 MG/2 ML VIAL IV ONE (12:45)
--- NOTE | 2020-01-06 13:15 | NUR ---
PT EXTUBATED AND PLACED ON 40% COOL MIST AEROSOL. Addendum: 01/06/20 at 1606 by Martha Lawrence RT ERROR WRONG PT
--- NOTE | 2020-01-06 14:35 | NUR ---
Nutrition Followup Note Wt 101.0 kg Pt is still intubated and NPO in the ICU following procedure. Pt is being initiated on TPN at 50 ml/hr providing 648 kcal, 60g protein and 408 NPCs. This provides 34-38% of energy needs and 71-86% of protein needs. Continue to advance TPN to meet >75% of needs Est energy needs 1953-2153 kcal (18-20 kcal/kg BW 96kg) Est protein needs 70-84g (1-1.2g/kg IBW 70kg) Will monitor and reassess prn. Labs: GLUC 130H, k 2.9L, Alb 1.7L, BUN 5L, Ca 7.L, CO2 33H BM: Pt with 2 BMs 01/05 per Rn note Skin: BS 13 mod risk, full details in manager critical care note. PES: Inadequate oral intake r/t current medical condition aeb pt with NPO diet order Comments: 1) Continue to monitor po intake, labs, skin 2) refer pt to OPd on Dc 3) Continue current plan of care Expected Outcomes/Goals: 1) Advance TPN to meet >75% of needs 2) advance diet as medically feasible 3) pt to maintain wt while in hospital 4) f/u 2-3 days Addendum: 01/06/20 at [address] Pt also with propofol at 21.42 ml/hr providing 565 kcal from lipids
--- NOTE | 2020-01-06 15:06 | NUR ---
SERVICE STATION MANAGER AT BEDSIDE
--- NOTE | 2020-01-06 17:21 | NUR ---
SPOKE TO KAYLA LASSITER THOROUGHBRED HORSE FARM MANAGER TO INFORM PATIENT IS NPO S/P ABDOMINAL SURGERY. PER KAYLA STOP PO MEDICATIONS THAT WERE ORDERED. ALL ORDERS NOTED IN CHART.
--- NOTE | 2020-01-06 17:33 | NUR ---
UPDATED DAUGHTER ON PATIENT CURRENT CONDITION. ALL QUESTIONS AND CONCERNS ADDRESSED AT THIS TIME.
--- NOTE | 2020-01-06 18:50 | NUR ---
PICC LINE NURSE AT BEDSIDE.
[2020-01-06] MEDS ORDERED: LIDOCAINE 1% (LOCAL ANESTH.) PF 5ml SDV ID ONE (19:45)
--- NOTE | 2020-01-06 19:48 | NUR ---
PICC line placement Patient/Patient significant other educated on need for PICC line placement. All risks and benefits explained and all questions and concerns addressed prior to procedure. Noted past medical history and allergies with no contraindications. INR and Plt counts within acceptable range. 5 fr PICC line inserted via right brachial vein using [employer]'s [employer] US and Tip Location System. Sterile technique with maximum barrier precautions utilized. Blood return obtained from each of the 3 lumens and each flushed easily with NS using proper technique. PICC secured with Stat-lock; biodisc and occlusive dressing applied. Less than 5ml EBL noted during procedure. PICC line 46cm internally w/ 0cm externally. Stat portable chest x-ray obtained for PICC tip placement. To notify senior staff specialized employment when line able to be used. *Baseline Arm Circumference 34cm at 1cm above insertion site. PICC lot # [id number]. Note:
[2020-01-06] MEDS ORDERED: PPN PER PHARMACY IV NR ×7 (20:00)
[2020-01-06] MEDS: fentaNYL Drip 2500mCg/250mlNS 250 ML IV SCH (20:31)
--- NOTE | 2020-01-06 20:42 | NUR ---
OK to use PICC line Xray completed. PCXR shows PICC line tip in the region of the [place]; radiologist confirmation pending. Narendra Ribeiro. notified now OK to use PICC line.
[2020-01-06] MEDS ORDERED: METOPROLOL TARTRATE 25 MG TAB PO SCH (22:00)
[2020-01-06] MEDS: SODIUM CHLOR 0.9% PF (SALINE LOCK) 10ML VIAL/SYR IV SCH (22:00)
[2020-01-06] MEDS: ATORVASTATIN 20 MG TAB PO SCH (23:45)
[2020-01-07] VITALS (83 sets, daily range): BP systolic 92–162; BP diastolic 24–65
[2020-01-07] MEDS: ACCU-CHEK COMFORT CURVE STRIP VI SCH ×4 (01:25→18:00)
[2020-01-07] MEDS: InsuLIN REG 1unit/0.01ml Soln (100units/ml) SC SCH ×4 (01:25→18:00)
[2020-01-07] MEDS: PIPERACILLIN-TAZOB 3.375GM 100 ML IV SCH ×3 (03:59→18:46)
[2020-01-07 05:20] LABS: Basophils # (auto) 0 10 ^3/uL (0-0.2); Basophils % (auto) 0.6 % (0.0-2.0); Eosinophils # (auto) 0.3 10 ^3/uL (0-0.8); Eosinophils % (auto) 4.9 % (0.0-7.0); Hematocrit 30.3 % (41.0-53.0); Hemoglobin 9.8 g/dL (13.5-17.5); Lymphocytes # (auto) 1.4 10 ^3/uL (0.4-5.4); Lymphocytes % (auto) 23.6 % (10.0-50.0); Mean Corpuscular Hemoglobin 29.5 pg (28.0-32.0); Mean Corpuscular Hgb Conc. 32.5 g/dL (32.0-36.0); Mean Corpuscular Volume 90.8 fL (80.0-100.0); Monocytes # (auto) 0.7 10 ^3/uL (0-1.3); Monocytes % (auto) 11.2 % (0.0-12.0); Neutrophils # (auto) 3.6 10 ^3/uL (1.6-8.6); Neutrophils % (auto) 59.7 % (37.0-80.0); Nucleated Red Blood Cells % 0.1 %; Platelet Count (auto) 308 10^3/uL (140-450); Red Blood Cells 3.34 10^6/uL (4.5-5.90); Red Cell Distribution Width 13.9 % (11.8-14.3); White Blood Cell 6.1 10^3/uL (4.4-10.8)
[2020-01-07 05:40] LABS: Albumin 1.6 g/dL (3.4-5.0); BUN/Creatinine Ratio 15.5; Calcium 7.6 mg/dL (8.5-10.1); Magnesium 1.9 mg/dL (1.6-2.6); Potassium 3.3 mmol/L (3.5-5.1)
[2020-01-07 05:44] LABS: Bilirubin, Total 0.2 mg/dL (0.2-1.0); Phosphorus 3.8 mg/dL (2.5-4.90); Total Protein 4.7 g/dL (6.4-8.2)
[2020-01-07] MEDS: ALBUTEROL SULF 2.5 MG/0.5ML(0.5%) NEB SOLN NEB PRN (06:14)
[2020-01-07] MEDS: metroNIDAZOLE 500MG/100ML 100 ML IV SCH ×3 (06:50→22:30)
--- NOTE | 2020-01-07 07:30 | NUR ---
REPORT RECEIVED FROM FLAME DEGREASER NURSE. PATIENT RESTING IN BED AT THIS TIME, INTUBATED AND SEDATED. RESPIRATIONS EVEN AND UNLABORED. BED IN LOW POSITION, WILL CONTINUE TO MONITOR.
--- NOTE | 2020-01-07 08:00 | NUR ---
DR Dimas LÓPEZ AT BEDSIDE TO ASSESS PATIENT AND DISCUSS PLAN OF CARE. MD MADE AWARE OF POTASSIUM LEVEL OF 3.3 AND GENERALIZED EDEMA. PER MD ADMINISTER 20MG LASIX IVP X1 DOSE AND 60MG POTASSIUM CHLORIDE IVPBX1 DOSE. ALSO MADE AWARE OF SECRETIONS AND LUNG SOUNDS BEING COARSE AND WHEEZES INTERMITTENTLY, PER MD START ON BREATHING TREATMENTS Q6H. ALL ORDERS NOTED IN CHART.
[2020-01-07] MEDS ORDERED: FUROSEMIDE 20 MG/2 ML VIAL IV ONE (08:45)
[2020-01-07] MEDS: POTASSIUM CHL 20MEQ/100ML 100 ML IV SCH ×3 (09:41→13:58)
[2020-01-07] MEDS: PANTOPRAZOLE 40 MG/10 ML VIAL INJ IV SCH (09:41)
[2020-01-07] MEDS: FLUCONAZOLE 200MG/100ML 100 ML IV SCH (09:41)
[2020-01-07] MEDS: PROPOFOL 100 ML IV SCH ×4 (09:41→22:29)
[2020-01-07] MEDS: ENOXAPARIN SOD 40 MG/0.4 ML SYRINGE SC SCH (09:42)
[2020-01-07] MEDS: SODIUM CHLOR 0.9% PF (SALINE LOCK) 10ML VIAL/SYR IV SCH ×2 (09:42→22:30)
--- NOTE | 2020-01-07 10:00 | NUR ---
DR NIX AT BEDSIDE TO ASSESS PATIENT. MD MADE AWARE OF PATIENTS THICK TENACIOUS SECRETIONS WELL INCREASED NEED OF SEDATIONS DUE TO INCREASED RR, HR, AND BP WHEN SEDATIONS DECREASED WITH ACCESSORY AND ABDOMINAL BREATHING. PER MD WILL ADD MUCOMYST TO BREATHING TREATMENTS WITH POSSIBLE BRONCHOSCOPY TOMORROW. ALL ORDERS NOTED IN CHART.
--- NOTE | 2020-01-07 11:29 | NUR ---
UPDATED DAUGHTER ON PATIENT STATUS AND PLAN OF CARE, INCLUDING POSSIBLE BRONCHOSCOPY TOMORROW DUE TO INCREASED SECRETIONS. ALL QUESTIONS AND CONCERNS ADDRESSED AT THIS TIME.
--- NOTE | 2020-01-07 11:31 | NUR ---
INFORMED DR NIX ABOUT PATIENTS POSITIVE MRSA SPUTUM. PER MD START PATIENT ON ZYVOX 600MG IVBP BID. ALL ORDERS NOTED IN CHART.
[2020-01-07] MEDS: ALBUTEROL SULF 2.5 MG/0.5ML(0.5%) NEB SOLN NEB SCH ×2 (12:15→18:16)
[2020-01-07] MEDS: IPRATROPIUM BROM 0.5 MG/2.5ML INH SOL NEB SCH ×2 (12:15→18:16)
[2020-01-07] MEDS: ACETYLCYSTEINE 10 %(100MG/ML) SOL 4ML NEB SCH ×2 (12:15→18:16)
[2020-01-07] MEDS: LINEZOLID 600MG/300ML 300 ML IV SCH (15:45)
--- NOTE | 2020-01-07 16:16 | NUR ---
PATRICE TEST DROPPED OFF AT LAB PER MD ORDER.
[2020-01-07] MEDS ORDERED: TPN PER PHARMACY IV NR ×6 (20:00)
[2020-01-07] MEDS ORDERED: PPN PER PHARMACY IV NR ×6 (20:00)
--- NOTE | 2020-01-07 20:00 | NUR ---
Respiratory isolation for rule out covid.
[2020-01-07] MEDS: ATORVASTATIN 20 MG TAB PO SCH (22:29)
[2020-01-07] MEDS: fentaNYL Drip 2500mCg/250mlNS 250 ML IV SCH (22:30)
[2020-01-08] VITALS (94 sets, daily range): BP systolic 84–138; BP diastolic 37–79
[2020-01-08] MEDS: ACCU-CHEK COMFORT CURVE STRIP VI SCH ×4 (00:52→18:13)
[2020-01-08] MEDS: InsuLIN REG 1unit/0.01ml Soln (100units/ml) SC SCH ×4 (00:53→18:11)
--- NOTE | 2020-01-08 02:00 | NUR ---
PATIENT IS NEGATIVE COVID. REMOVED RES.ISOLATION. PATIENT IS ON DROPLET ISOLATION FOR MRSA SPUTUM.
[2020-01-08] MEDS: PIPERACILLIN-TAZOB 3.375GM 100 ML IV SCH ×3 (03:30→19:00)
--- NOTE | 2020-01-08 03:30 | NUR ---
Patient bathe/linen change Patient given complete bath with chlorhexidine wipes. Skin integrity assessed for any changes. Linens changed. Patient repositioned for comfort.
[2020-01-08] MEDS: LINEZOLID 600MG/300ML 300 ML IV SCH ×2 (03:31→15:00)
[2020-01-08] MEDS: PROPOFOL 100 ML IV SCH ×5 (03:35→20:36)
[2020-01-08] MEDS: metroNIDAZOLE 500MG/100ML 100 ML IV SCH ×3 (05:34→22:00)
[2020-01-08 05:55] LABS: Basophils # (auto) 0.1 10 ^3/uL (0-0.2); Basophils % (auto) 0.8 % (0.0-2.0); Eosinophils # (auto) 0.3 10 ^3/uL (0-0.8); Eosinophils % (auto) 3.4 % (0.0-7.0); Hematocrit 33.4 % (41.0-53.0); Hemoglobin 10.6 g/dL (13.5-17.5); Lymphocytes # (auto) 1.3 10 ^3/uL (0.4-5.4); Lymphocytes % (auto) 15.6 % (10.0-50.0); Mean Corpuscular Hemoglobin 28.8 pg (28.0-32.0); Mean Corpuscular Hgb Conc. 31.8 g/dL (32.0-36.0); Mean Corpuscular Volume 90.6 fL (80.0-100.0); Monocytes # (auto) 0.7 10 ^3/uL (0-1.3); Monocytes % (auto) 8.6 % (0.0-12.0); Neutrophils # (auto) 6.2 10 ^3/uL (1.6-8.6); Neutrophils % (auto) 71.6 % (37.0-80.0); Platelet Count (auto) 365 10^3/uL (140-450); Red Blood Cells 3.68 10^6/uL (4.5-5.90); Red Cell Distribution Width 14.6 % (11.8-14.3); White Blood Cell 8.6 10^3/uL (4.4-10.8)
[2020-01-08] MEDS: ALBUTEROL SULF 2.5 MG/0.5ML(0.5%) NEB SOLN NEB SCH ×5 (06:10→18:19)
[2020-01-08] MEDS: IPRATROPIUM BROM 0.5 MG/2.5ML INH SOL NEB SCH ×5 (06:10→18:19)
[2020-01-08] MEDS: ACETYLCYSTEINE 10 %(100MG/ML) SOL 4ML NEB SCH ×5 (06:10→18:19)
[2020-01-08 06:17] LABS: Potassium 3.8 mmol/L (3.5-5.1)
[2020-01-08 06:28] LABS: Albumin 1.8 g/dL (3.4-5.0); BUN/Creatinine Ratio 16.7; Bilirubin, Total 0.3 mg/dL (0.2-1.0); Calcium 7.5 mg/dL (8.5-10.1); Magnesium 2.2 mg/dL (1.6-2.6); Phosphorus 3.4 mg/dL (2.5-4.90); Total Protein 5.3 g/dL (6.4-8.2)
--- NOTE | 2020-01-08 07:00 | NUR ---
REPORT RECEIVED FROM VETERINARY NURSE NURSE. PATIENT RESTING IN BED AT THIS TIME INTUBATED AND SEDATED. RESPIRATIONS EVEN AND UNLABORED. NO SIGNS OF ACUTE DISTRESS NOTED. BED IN LOW POSITION, WILL CONTINUE TO MONITOR.
--- NOTE | 2020-01-08 09:30 | NUR ---
UPDATED DAUGHTER ON PATIENT STATUS AND PLAN OF CARE. PER DAUGHTER SHE WOULD LIKE TO TALK WITH PULVERIZER FEEDER ABOUT PATIENTS CARE.
[2020-01-08] MEDS: SODIUM CHLOR 0.9% PF (SALINE LOCK) 10ML VIAL/SYR IV SCH ×2 (10:00→22:00)
--- NOTE | 2020-01-08 10:00 | NUR ---
DR MCCARTHY WILL NOT EVALUATE PATIENT FOR CELIAC ARTERY ANGIO UNTIL RESPIRATORY STATUS MORE STABLE. RAMA BOWMAN NOTIFIED.
--- NOTE | 2020-01-08 10:00 | NUR ---
DR Dimas LÓPEZ AT BEDSIDE TO ASSESS PATIENT AND DISCUSS PLAN OF CARE. ALL ORDERS NOTED IN CHART.
[2020-01-08] MEDS ORDERED: ENOXAPARIN SOD 60 MG/0.6 ML SYRINGE SC ONE (10:30)
[2020-01-08] MEDS: ENOXAPARIN SOD 40 MG/0.4 ML SYRINGE SC SCH (10:37)
[2020-01-08] MEDS: PANTOPRAZOLE 40 MG/10 ML VIAL INJ IV SCH (10:38)
[2020-01-08] MEDS ORDERED: FUROSEMIDE 20 MG/2 ML VIAL IV ONE (10:45)
--- NOTE | 2020-01-08 11:02 | NUR ---
Nutrition Followup Note Wt 100.4 kg Pt is still intubated and sedated in ICU with propofol running at 30.6ml/hr providing 808 kcal from lipids. Pt TPN is advanced to 63 ml/hr providing 1970 kcal, 90g protein and 1610 NPCs. This provides 100% of energy and protein needs. Continue TPN to meet >75% of needs, advance diet as medically feasible Est energy needs 6201-4349 kcal (18-20 kcal/kg BW 96kg) Est protein needs 70-84g (1-1.2g/kg IBW 70kg) Will monitor and reassess prn. Labs: GLUC 184H, Ca 7.5L, Alb 1.8L BM: Pt with 2 BMs 01/07 per Rn note Skin: BS 12 high risk, full details in rn progressive care note. PES: Inadequate oral intake r/t current medical condition aeb pt with NPO diet order Comments: 1) Continue to monitor po intake, labs, skin 2) refer pt to OPd on Dc 3) Continue current plan of care Expected Outcomes/Goals: 1) Continue TPN to meet >75% of needs 2) advance diet as medically feasible 3) pt to maintain wt while in hospital 4) f/u 2-3 days
--- NOTE | 2020-01-08 15:03 | NUR ---
REPORT GIVEN TO IVON ONTIVEROS TO ASSUME CARE OF PATIENT. PATIENT TRANSFERRED TO TEMPERATURE REGULATOR PYROMETER BED 4 VIA BED CONNECTED TO PORTABLE MONITOR. RESPIRATORY THERAPIST AND RN AT BEDSIDE FOR TRANSFER. VITAL SIGNS STABLE, NO SIGNS OF ACUTE DISTRESS NOTED.
--- NOTE | 2020-01-08 17:55 | NUR ---
MD Pedroza at bedside. New orders received. CPAP trial in AM. Stated can use precedex that is ordered if need to. Will start titrating down on sedation.
--- NOTE | 2020-01-08 19:44 | NUR ---
report given to police shift commander RN
[2020-01-08] MEDS ORDERED: TPN PER PHARMACY IV NR ×10 (20:00)
[2020-01-08] MEDS: ATORVASTATIN 20 MG TAB PO SCH (22:00)
[2020-01-09] VITALS (83 sets, daily range): BP systolic 86–176; BP diastolic 52–125
[2020-01-09] MEDS: InsuLIN REG 1unit/0.01ml Soln (100units/ml) SC SCH ×4 (00:11→18:41)
[2020-01-09] MEDS: ACCU-CHEK COMFORT CURVE STRIP VI SCH ×5 (00:12→23:52)
[2020-01-09] MEDS: PROPOFOL 100 ML IV SCH ×2 (00:15→03:35)
[2020-01-09] MEDS: ALBUTEROL SULF 2.5 MG/0.5ML(0.5%) NEB SOLN NEB SCH ×4 (00:46→18:13)
[2020-01-09] MEDS: ACETYLCYSTEINE 10 %(100MG/ML) SOL 4ML NEB SCH ×4 (00:47→18:14)
[2020-01-09] MEDS: IPRATROPIUM BROM 0.5 MG/2.5ML INH SOL NEB SCH ×4 (00:47→18:13)
[2020-01-09] MEDS: PIPERACILLIN-TAZOB 3.375GM 100 ML IV SCH ×3 (03:00→19:00)
[2020-01-09] MEDS: LINEZOLID 600MG/300ML 300 ML IV SCH ×2 (03:00→15:00)
[2020-01-09 05:02] LABS: Basophils # (auto) 0.1 10 ^3/uL (0-0.2); Basophils % (auto) 0.9 % (0.0-2.0); Eosinophils # (auto) 0.3 10 ^3/uL (0-0.8); Eosinophils % (auto) 4.1 % (0.0-7.0); Hematocrit 32.8 % (41.0-53.0); Hemoglobin 10.7 g/dL (13.5-17.5); Lymphocytes # (auto) 1.3 10 ^3/uL (0.4-5.4); Lymphocytes % (auto) 15.6 % (10.0-50.0); Mean Corpuscular Hemoglobin 29.6 pg (28.0-32.0); Mean Corpuscular Hgb Conc. 32.7 g/dL (32.0-36.0); Mean Corpuscular Volume 90.3 fL (80.0-100.0); Monocytes % (auto) 11.8 % (0.0-12.0); Neutrophils # (auto) 5.7 10 ^3/uL (1.6-8.6); Neutrophils % (auto) 67.6 % (37.0-80.0); Platelet Count (auto) 402 10^3/uL (140-450); Red Blood Cells 3.63 10^6/uL (4.5-5.90); Red Cell Distribution Width 14.1 % (11.8-14.3); White Blood Cell 8.4 10^3/uL (4.4-10.8)
[2020-01-09 05:28] LABS: Albumin 1.8 g/dL (3.4-5.0); Bilirubin, Total 0.3 mg/dL (0.2-1.0); Magnesium 2.2 mg/dL (1.6-2.6); Phosphorus 3.1 mg/dL (2.5-4.90); Total Protein 5.4 g/dL (6.4-8.2)
[2020-01-09] MEDS: metroNIDAZOLE 500MG/100ML 100 ML IV SCH ×3 (05:31→21:20)
--- NOTE | 2020-01-09 06:34 | NUR ---
Respiratory note: RECEIVED PATIENT ON V5 ESPRIT VENT ORALLY INTUBATED WITH AN 8.0 ETT SECURED VIA MAGDA AT THE 23CM MARKING AT THE LIP, AND MECHANICALLY VENTILATED WITH THE CHARTED SETTINGS. SPO2 96%, LUNG SOUNDS CLEAR/DIM T/O, SMALL AMOUNT OF THICK CLEAR SECRETIONS WHEN SUCTIONED. SKIN IS WARM/DRY TO THE TOUCH AND IS INTACT NEAR MAGDA SITE. THERE IS AN OGT IN PLACE AND SECURED TO THE ETT, A PICC LINE IS PLACED IN THE RIGHT UPPER ARM. THERE IS PITTING EDEMA NOTED IN BILATERAL UPPER AND LOWER EXTREMITIES. THERE IS AN ABDOMINAL BINDER IN PLACE AND A GAMA DRAIN. NO NEW AM CXR TO ASSESS. PATIENT IS SEDATED ON VERSED AND FENTANYL DRIPS AND IS UNRESPONSIVE TO STIMULI. HE IS RESTING COMFORTABLY AND TOLERATING VENT WELL, NO CHANGES MADE. VENT PLUGGED INTO RED OUTLET AND ALL ALARMS ARE SET AND AUDIBLE. WILL CONTINUE TO ASSESS PATIENT WELL VENTILATOR FUNCTION. MED-D[employer] RUN INLINE.
[2020-01-09] MEDS: fentaNYL Drip 2500mCg/250mlNS 250 ML IV SCH ×2 (07:45→20:45)
--- NOTE | 2020-01-09 09:38 | NUR ---
Respiratory note: FIO2 DECREASED TO 30% AT THIS TIME; RAMA LIRA MADE AWARE OF CHANGE.
[2020-01-09] MEDS: SODIUM CHLOR 0.9% PF (SALINE LOCK) 10ML VIAL/SYR IV SCH ×2 (09:56→21:20)
[2020-01-09] MEDS: ENOXAPARIN SOD 40 MG/0.4 ML SYRINGE SC SCH (09:56)
[2020-01-09] MEDS: PANTOPRAZOLE 40 MG/10 ML VIAL INJ IV SCH (09:56)
--- NOTE | 2020-01-09 10:30 | NUR ---
MD Dr. Nava at bedside updated on patient condition with no new orders. Will continue to monitor patient closely.
--- NOTE | 2020-01-09 12:40 | NUR ---
FAMILY Received phone call from patients daughter, confirmed password, updated on patient condition.
--- NOTE | 2020-01-09 14:37 | NUR ---
Respiratory note: PATIENT SWITCHED TO CPAP FOR WEANING TRIAL. HE IS OFF ALL SEDATION AND IS FOLLOWING SIMPLE COMMANDS AND TRACKING WELL. RAMA LIRA AT BEDSIDE AND AWARE OF VENT MODE CHANGE. PATIENT TOLERATING WELL AT THIS TIME.
--- NOTE | 2020-01-09 14:37 | NUR ---
RESPIRATORY RT Feliciano at bedside placed patient on CPAP.
--- NOTE | 2020-01-09 16:15 | NUR ---
Respiratory note: PATIENT PLACED BACK ON PREVIOUS AC MODE/SETTINGS AT THIS TIME HE REMAINS TOO GROGGY TO CONTINUE WITH WEANING ATTEMPT. RAMA LIRA AT BEDSIDE AND AWARE OF PATIENTS STATUS AND VENT MODE CHANGE.
--- NOTE | 2020-01-09 16:15 | NUR ---
RESPIRATORY RT Feliciano at bedside and placed patient back on previous vent setting secondary to patient unable to do weaning parameter and to groggy. Will attempt later once patient is more awake.
--- NOTE | 2020-01-09 17:30 | NUR ---
ELIMINATION Patient has a large loose stool, eliezer care provided and complete linen change done with the assistance of Paula ONTIVEROS.
--- NOTE | 2020-01-09 19:25 | NUR ---
MD Dr. Pedroza at bedside updated on patient condition with no new orders. Will continue to monitor patient closely.
[2020-01-09] MEDS ORDERED: TPN PER PHARMACY IV NR ×10 (20:00)
[2020-01-09] MEDS: ATORVASTATIN 20 MG TAB PO SCH (21:20)
[2020-01-10] VITALS (54 sets, daily range): BP systolic 100–164; BP diastolic 55–99
[2020-01-10] MEDS: InsuLIN REG 1unit/0.01ml Soln (100units/ml) SC SCH ×4 (00:03→18:00)
[2020-01-10] MEDS: ALBUTEROL SULF 2.5 MG/0.5ML(0.5%) NEB SOLN NEB SCH ×3 (00:09→13:05)
[2020-01-10] MEDS: ACETYLCYSTEINE 10 %(100MG/ML) SOL 4ML NEB SCH ×4 (00:09→18:00)
[2020-01-10] MEDS: IPRATROPIUM BROM 0.5 MG/2.5ML INH SOL NEB SCH ×3 (00:09→13:05)
[2020-01-10] MEDS: PIPERACILLIN-TAZOB 3.375GM 100 ML IV SCH ×3 (02:47→19:33)
[2020-01-10 04:20] LABS: Basophils # (auto) 0.1 10 ^3/uL (0-0.2); Basophils % (auto) 0.6 % (0.0-2.0); Neutrophils # (auto) 6.3 10 ^3/uL (1.6-8.6); White Blood Cell 9.2 10^3/uL (4.4-10.8)
[2020-01-10 04:21] LABS: Eosinophils # (auto) 0.1 10 ^3/uL (0-0.8); Eosinophils % (auto) 0.6 % (0.0-7.0); Hematocrit 33.2 % (41.0-53.0); Hemoglobin 10.8 g/dL (13.5-17.5); Lymphocytes # (auto) 1.3 10 ^3/uL (0.4-5.4); Lymphocytes % (auto) 14.2 % (10.0-50.0); Mean Corpuscular Hemoglobin 29.5 pg (28.0-32.0); Mean Corpuscular Hgb Conc. 32.6 g/dL (32.0-36.0); Mean Corpuscular Volume 90.3 fL (80.0-100.0); Monocytes # (auto) 1.5 10 ^3/uL (0-1.3); Monocytes % (auto) 15.8 % (0.0-12.0); Neutrophils % (auto) 68.8 % (37.0-80.0); Platelet Count (auto) 474 10^3/uL (140-450); Red Blood Cells 3.67 10^6/uL (4.5-5.90); Red Cell Distribution Width 14.4 % (11.8-14.3)
[2020-01-10 04:34] LABS: Potassium 3.6 mmol/L (3.5-5.1)
[2020-01-10] MEDS: LINEZOLID 600MG/300ML 300 ML IV SCH ×2 (04:38→15:47)
[2020-01-10 04:43] LABS: BUN/Creatinine Ratio 25.8; Bilirubin, Total 0.4 mg/dL (0.2-1.0); Magnesium 2.5 mg/dL (1.6-2.6); Phosphorus 3.1 mg/dL (2.5-4.90)
[2020-01-10] MEDS: ACCU-CHEK COMFORT CURVE STRIP VI SCH ×3 (05:43→18:00)
[2020-01-10] MEDS: metroNIDAZOLE 500MG/100ML 100 ML IV SCH ×3 (05:43→21:56)
--- NOTE | 2020-01-10 08:25 | NUR ---
RESPIRATORY RT Liz at bedside and placed patient on CPAP setting patient tolerating well sating 95%. Will continue to monitor patient closely.
[2020-01-10] MEDS: PANTOPRAZOLE 40 MG/10 ML VIAL INJ IV SCH (09:38)
[2020-01-10] MEDS: ENOXAPARIN SOD 40 MG/0.4 ML SYRINGE SC SCH (09:39)
[2020-01-10] MEDS: SODIUM CHLOR 0.9% PF (SALINE LOCK) 10ML VIAL/SYR IV SCH ×2 (09:39→22:27)
--- NOTE | 2020-01-10 09:45 | NUR ---
MD Dr. Nava at bedside updated on patient condition with no new orders. Will continue to monitor patient closely.
--- NOTE | 2020-01-10 09:50 | NUR ---
WEANING PARAMETERS: NIF-27, FVC: 1.1 L
--- NOTE | 2020-01-10 10:05 | NUR ---
PT. EXTUBATED WITH RN AT BEDSIDE. PT. AWAKES AND ABLE TO ANSWER YES OR NO TO SIMPLE COMMANDS-STILL SLIGHTLY RESTLESS. PLACED ON 35% COOL AEROSOL VIA FACE MASK, PT. HAS STRONG PRODUCTIVE COUGH OF THICK SECRETIONS. LUNG SOUNDS REMAIN DECREASED T/O-NO STRIDOR NOTED. RR 20, HR 106. POX 95%.
--- NOTE | 2020-01-10 10:05 | NUR ---
RESPIRATORY RT Liz at bedside with new order from Dr. Pedroza to extubate patient. Patient extubated and placed on cool mist mask at 40% sating 96%. Will continue to monitor patient closely.
--- NOTE | 2020-01-10 11:30 | NUR ---
FAMILY Called patients daughter Caron at [phone], confirmed password and updated on patient condition and plan of care. Will continue to monitor patient closely.
--- NOTE | 2020-01-10 11:35 | NUR ---
MD Dr. Willson at bedside updated on patient condition with new orders, this RN to input into system. Will carry out orders.
[2020-01-10] MEDS ORDERED: EPINEPHrine HCL 0.5 ML NEB ONE (13:25)
--- NOTE | 2020-01-10 13:25 | NUR ---
MD Upon arriving from lunch patient was found having stridor and RT Liz at bedside giving Racemic breathing treatment. Called and spoke to Dr. Pedroza regarding Stridor with new orders, this RN to input system. Will carry out orders.
[2020-01-10] MEDS ORDERED: DexAMETHasone SOD PHOS 10MG/1ML VIAL INJ IV ONE (13:30)
--- NOTE | 2020-01-10 13:30 | NUR ---
PT. REMAINS VERY RESTLESS-MOVING ALL OVER BED. AUDIBLE STRIDOR NOTED-LUNG LEE DECREASED. PT. STILL FOLLOWS SIMPLE COMMANDS. RN PANKAJ AWARE AND AWAITING FURTHER ORDERS. PT. REMAINS ON 35% COOL AEROSOL WITH POX OF 94%
[2020-01-10] MEDS ORDERED: DexAMETHasone SOD PHOS 10MG/1ML VIAL INJ ONE (13:35)
--- NOTE | 2020-01-10 13:35 | NUR ---
MD Called and spoke to Dr. Nava regarding patient being restless and new orders for Ativan 1MG IV Q 6 hours PRN for agitation/restlessness. This RN to input into system. Will carry put orders per MD orders.
--- NOTE | 2020-01-10 13:45 | NUR ---
MORPHINE Morphine given to patient for restlessness/agitation as well as pain secondary to patient facial grimacing and increase in movements.
--- NOTE | 2020-01-10 13:50 | NUR ---
AGITATION Patient appears to be less agitated/restless, movements have decreased and stridor appears to have resolved. Will continue to monitor patient closely.
--- NOTE | 2020-01-10 13:50 | NUR ---
POST RACEMIC EPI TX-STRIDOR IMPROVED, PT. APPEARS NOT RESTLESS AT THIS TIME. PLACED BACK ON 35% COOL AEROSOL VIA FACE MASK. POX 94%
--- NOTE | 2020-01-10 14:00 | NUR ---
FAMILY Called and spoke to Caron, patients daughter, confirmed password and updated on patient condition. Caron was able to talk to patient to see if it would calm him down. Appeared to work. Caron stated " that she would call her brother and have him call as well so that he can tell her dad to calm down and listen to the nurses."
--- NOTE | 2020-01-10 14:30 | NUR ---
FAMILY Received phone call from Josh, patients son, confirmed password and updated on patient condition. Josh was able to talk to patient and patient appeared to get calm. Will continue to monitor patient closely.
[2020-01-10] MEDS: LORazepam 2MG/ML-1ML VIAL IV PRN (14:58)
--- NOTE | 2020-01-10 14:59 | NUR ---
Nutrition Followup Note Wt 96.5 kg Pt extubated this am, was on BIPAP when rounded. pt is currently NPO on TPN @67 63 ml/hr providing 2010 kcal, 110g protein and 1570 NPCs. This provides 104-116% of energy and 130-157% protein needs. Est energy needs 9938-3981 kcal (18-20 kcal/kg BW 96kg) Est protein needs 70-84g (1-1.2g/kg IBW 70kg) Will monitor and reassess prn. Labs: GLU 141 H ALB 2.0 L CA 8.0 L BM: Pt with 1 BM today per Rn note Skin: BS 12 high risk, full details in cardiac care unit nurse note. PES: Inadequate oral intake r/t current medical condition aeb pt with NPO diet order Comments: 1) Continue to monitor NPO status, PN tolerance, F/u high 2-3 days Rec: 1) Continue TPN to meet >75% of needs 2) advance diet as medically feasible 3) continue current plan of care
[2020-01-10] MEDS ORDERED: PIPERACILLIN TAZOB 3.375 GM IV ONE (19:48)
[2020-01-10] MEDS ORDERED: TPN PER PHARMACY IV NR ×10 (20:00)
[2020-01-10] MEDS: MORPHINE SULF INJ 2 MG/ML SYRINGE 1ML IV PRN (20:19)
[2020-01-10] MEDS: ATORVASTATIN 20 MG TAB PO SCH (22:26)
[2020-01-11] VITALS (25 sets, daily range): BP systolic 98–174; BP diastolic 48–87
[2020-01-11] MEDS ORDERED: InsuLIN REG 1unit/0.01ml Soln (100units/ml) ONE (00:06)
[2020-01-11] MEDS: ACCU-CHEK COMFORT CURVE STRIP VI SCH ×4 (00:06→17:52)
[2020-01-11] MEDS: InsuLIN REG 1unit/0.01ml Soln (100units/ml) SC SCH ×4 (00:06→17:52)
[2020-01-11] MEDS: IPRATROPIUM BROM 0.5 MG/2.5ML INH SOL NEB SCH ×5 (02:10→23:28)
[2020-01-11] MEDS: ALBUTEROL SULF 2.5 MG/0.5ML(0.5%) NEB SOLN NEB SCH ×6 (02:10→23:28)
[2020-01-11] MEDS: PIPERACILLIN-TAZOB 3.375GM 100 ML IV SCH ×3 (02:19→19:02)
--- NOTE | 2020-01-11 02:48 | NUR ---
PATIENT RESTLESS ON AND OFF, PULLED NGT EARLIER. MAINTAINS SATS OF 02-96% ON 2L /NC. WHEEZING AT TOMES. AFEBRILE, BP STABLE.
[2020-01-11] MEDS: LINEZOLID 600MG/300ML 300 ML IV SCH ×2 (03:00→15:00)
[2020-01-11] MEDS: ACETYLCYSTEINE 10 %(100MG/ML) SOL 4ML NEB SCH ×4 (05:59→23:28)
[2020-01-11] MEDS ORDERED: EPINEPHrine HCL 0.5 ML NEB NEB ONE (06:00)
[2020-01-11] MEDS ORDERED: EPINEPHrine HCL 0.5 ML NEB ONE (06:07)
[2020-01-11] MEDS: metroNIDAZOLE 500MG/100ML 100 ML IV SCH ×3 (06:08→21:48)
--- NOTE | 2020-01-11 06:08 | NUR ---
PT DIMMINISHED BILAT, UPPER AIRWAY WHEEZING MORE PRONOUNCED, SATS NOT DROPPING, RT AT BEDSIDE, DECIDES TO GIVE RACEMIC.
[2020-01-11] MEDS: PANTOPRAZOLE 40 MG/10 ML VIAL INJ IV SCH (09:51)
[2020-01-11] MEDS: SODIUM CHLOR 0.9% PF (SALINE LOCK) 10ML VIAL/SYR IV SCH ×2 (09:51→22:00)
[2020-01-11] MEDS: ENOXAPARIN SOD 40 MG/0.4 ML SYRINGE SC SCH (09:51)
[2020-01-11 10:01] LABS: Basophils # (auto) 0 10 ^3/uL (0-0.2); Basophils % (auto) 0.4 % (0.0-2.0); Eosinophils # (auto) 0 10 ^3/uL (0-0.8); Hematocrit 30.3 % (41.0-53.0); Lymphocytes # (auto) 1.2 10 ^3/uL (0.4-5.4); Mean Corpuscular Hemoglobin 29.5 pg (28.0-32.0); Mean Corpuscular Hgb Conc. 32.9 g/dL (32.0-36.0); Mean Corpuscular Volume 89.5 fL (80.0-100.0); Monocytes # (auto) 1.5 10 ^3/uL (0-1.3); Monocytes % (auto) 17.2 % (0.0-12.0); Neutrophils # (auto) 6.2 10 ^3/uL (1.6-8.6); Neutrophils % (auto) 69.4 % (37.0-80.0); Platelet Count (auto) 476 10^3/uL (140-450); Red Blood Cells 3.39 10^6/uL (4.5-5.90); Red Cell Distribution Width 14.2 % (11.8-14.3); White Blood Cell 8.9 10^3/uL (4.4-10.8)
[2020-01-11 10:22] LABS: Potassium 3.5 mmol/L (3.5-5.1)
[2020-01-11 10:30] LABS: Albumin 2.2 g/dL (3.4-5.0); BUN/Creatinine Ratio 29.7; Bilirubin, Total 0.5 mg/dL (0.2-1.0); Calcium 8.2 mg/dL (8.5-10.1); Magnesium 2.6 mg/dL (1.6-2.6); Phosphorus 2.6 mg/dL (2.5-4.90); Total Protein 5.8 g/dL (6.4-8.2)
[2020-01-11] MEDS ORDERED: POTASSIUM CHL 20MEQ/100ML 100 ML IV ONE (12:15)
[2020-01-11] MEDS: ALBUTEROL SULF 2.5 MG/0.5ML(0.5%) NEB SOLN NEB PRN (15:37)
--- NOTE | 2020-01-11 15:58 | NUR ---
PATIENT REMAINED WHEEZY ON THE UPPER LOBE. DENIES ANY PAIN. OXYGEN INTACT AT 4 LITERS. HAD [address] BROWNISH COLOR[address] BAINS CAME AND REMOVED HIS GAMA. APPLIED DRESSING. DR JENY LÓPEZ CAME AND WROTE TRANSFER ORDERS TO TELEMETRY AREA WHEN BED IS AVAILABLE.
--- NOTE | 2020-01-11 19:00 | NUR ---
PATIENT BECAME RESTLESS AND CONFUSED. MEDICATED WITH ATIVAN IN FOR RESTLESSNESS.
[2020-01-11] MEDS: LORazepam 2MG/ML-1ML VIAL IV PRN ×2 (19:03→20:50)
--- NOTE | 2020-01-11 19:04 | NUR ---
STARTED INFUSING THE TUBE FEEDING AT 10CC/HR WITH THE GOAL OF 60 CC/HR Addendum: 01/11/20 at 1908 by Noemy Gonzalez RN RN THIS CHARTING IS MEANT FOR ANOTHER PATIENT
[2020-01-11] MEDS ORDERED: TPN PER PHARMACY IV NR ×11 (20:00)
[2020-01-11] MEDS: MORPHINE SULF INJ 2 MG/ML SYRINGE 1ML IV PRN (20:49)
[2020-01-11] MEDS: ATORVASTATIN 20 MG TAB PO SCH (21:50)
[2020-01-12] VITALS (23 sets, daily range): BP systolic 107–166; BP diastolic 53–96
[2020-01-12] MEDS: InsuLIN REG 1unit/0.01ml Soln (100units/ml) SC SCH ×4 (00:23→18:13)
[2020-01-12] MEDS: ACCU-CHEK COMFORT CURVE STRIP VI SCH ×4 (00:23→18:14)
[2020-01-12] MEDS: LINEZOLID 600MG/300ML 300 ML IV SCH ×2 (03:00→17:05)
[2020-01-12] MEDS: PIPERACILLIN-TAZOB 3.375GM 100 ML IV SCH ×3 (03:00→19:00)
[2020-01-12 03:14] LABS: Basophils # (auto) 0.1 10 ^3/uL (0-0.2); Basophils % (auto) 0.8 % (0.0-2.0); Eosinophils # (auto) 0.1 10 ^3/uL (0-0.8); Eosinophils % (auto) 1.2 % (0.0-7.0); Hematocrit 32.8 % (41.0-53.0); Hemoglobin 10.7 g/dL (13.5-17.5); Lymphocytes # (auto) 1.8 10 ^3/uL (0.4-5.4); Lymphocytes % (auto) 17.9 % (10.0-50.0); Mean Corpuscular Hemoglobin 29.4 pg (28.0-32.0); Mean Corpuscular Hgb Conc. 32.6 g/dL (32.0-36.0); Mean Corpuscular Volume 90.3 fL (80.0-100.0); Monocytes # (auto) 1.7 10 ^3/uL (0-1.3); Monocytes % (auto) 17.2 % (0.0-12.0); Neutrophils # (auto) 6.2 10 ^3/uL (1.6-8.6); Neutrophils % (auto) 62.9 % (37.0-80.0); Platelet Count (auto) 546 10^3/uL (140-450); Red Blood Cells 3.63 10^6/uL (4.5-5.90); Red Cell Distribution Width 14.3 % (11.8-14.3); White Blood Cell 9.9 10^3/uL (4.4-10.8)
[2020-01-12] MEDS: MORPHINE SULF INJ 2 MG/ML SYRINGE 1ML IV PRN (03:39)
[2020-01-12 03:40] LABS: Potassium 3.9 mmol/L (3.5-5.1)
[2020-01-12] MEDS: LORazepam 2MG/ML-1ML VIAL IV PRN ×3 (03:42→21:57)
[2020-01-12 03:47] LABS: Albumin 2.3 g/dL (3.4-5.0); BUN/Creatinine Ratio 27.7; Bilirubin, Total 0.5 mg/dL (0.2-1.0); Calcium 8.2 mg/dL (8.5-10.1); Magnesium 2.3 mg/dL (1.6-2.6); Phosphorus 3.1 mg/dL (2.5-4.90); Total Protein 6.3 g/dL (6.4-8.2)
[2020-01-12] MEDS: metroNIDAZOLE 500MG/100ML 100 ML IV SCH ×3 (05:20→22:22)
[2020-01-12] MEDS: ALBUTEROL SULF 2.5 MG/0.5ML(0.5%) NEB SOLN NEB SCH ×3 (06:00→18:49)
[2020-01-12] MEDS: ACETYLCYSTEINE 10 %(100MG/ML) SOL 4ML NEB SCH ×3 (06:00→18:49)
[2020-01-12] MEDS: IPRATROPIUM BROM 0.5 MG/2.5ML INH SOL NEB SCH ×3 (06:00→18:49)
--- NOTE | 2020-01-12 06:56 | NUR ---
PT. REMAINS WITH A CONSIDERABLE STRIDOR, MORE PRONOUNCED WITH AGITATION/ANXIETY. WEAK UNFREQUENT COUGH, TMAX 99.0, RESPONDS VERBALLY AT TIMES, A BIT MORE COHERENTLY. RESTLESSNESS STILL A PROBLEM,GOOD UO, 2000 THIS AM.
--- NOTE | 2020-01-12 09:25 | NUR ---
MAKAYLA Mitchell NP at bedside updated on patient condition with no new orders. Will continue to monitor patient.
[2020-01-12] MEDS: ENOXAPARIN SOD 40 MG/0.4 ML SYRINGE SC SCH (10:15)
[2020-01-12] MEDS: SODIUM CHLOR 0.9% PF (SALINE LOCK) 10ML VIAL/SYR IV SCH ×2 (10:15→22:22)
[2020-01-12] MEDS: PANTOPRAZOLE 40 MG/10 ML VIAL INJ IV SCH (10:15)
--- NOTE | 2020-01-12 10:30 | NUR ---
MD Dr. Alvarez at bedside updated on patient condition with new orders this RN to input into system. Will carry out orders per MD request.
--- NOTE | 2020-01-12 10:40 | NUR ---
MD Dr. Lira at bedside updated on patient condition with no new orders. Will continue to monitor patient closely.
--- NOTE | 2020-01-12 11:45 | NUR ---
FAMILY Received phone call from patients daughter Caron, confirmed password and updated on patient condition and plan of care. Will continue to monitor patient closely.
--- NOTE | 2020-01-12 12:45 | NUR ---
ELIMINATION Patient has a large bowel movement, eliezer care provided and complete linen change done with the assistance of Margarita ONTIVEROS. Patient tolerated well.
--- NOTE | 2020-01-12 14:11 | NUR ---
Nutrition Followup Note Wt 96.0 kg Pt extubated 0n /, was awake , alert when rounded. Pt is currently with a Clear Liquid diet, per RN pt intake is poor aeb 25% PO intake this a.m. Pt is with TPN @84 ml/hr providing 1740 kcal, 130g protein and 1220 NPCs. PN support provides 91-101% of est energy needs and 155-186% of est protein needs. Encouraged pt to increase his PO intake as tolerated. Est energy needs 0839-2329 kcal (18-20 kcal/kg BW 96kg) Est protein needs 70-84g (1-1.2g/kg IBW 70kg) Will monitor and reassess prn. Labs: GLU 159 H ALB 2.3 L CA 8.2 L BM: Pt with no BM today per RN note Skin: BS 12 high risk, full details in rn homecare note. PES: Inadequate oral intake r/t current medical condition aeb pt with NPO diet order Comments: Will continue to monitor PO status, skin status, pertinent labs and weight trends. Will f/u in 2-3 days 1) Continue TPN to meet >75% of needs (Resolved) 2) Advance diet as medically feasible (In process) 3) Continue current plan of care
--- NOTE | 2020-01-12 15:50 | NUR ---
SWALLOW EVALUATION Cecilia speech therapist at bedside to assess patients swallow capability.
--- NOTE | 2020-01-12 15:54 | NUR ---
SWALLOW EVALUATED. PATIENT HAS NATURAL TEETH UPPER AND LOWER. PATIENT IS CONFUSED BUT ABLE TO FOLLOW ONE STEP COMMANDS. NURSING REPORTED COUGHING ON THIN LIQUIDS. PER EVALUATION, PATIENT ABLE TO TOLERATE PUREE DIET TEXTURE WITH NECTAR THICKENED LIQUIDS WITH NO OVERT SIGNS OR SYMPTOMS OF ASPIRATION. NURSING NOTIFIED.
--- NOTE | 2020-01-12 16:45 | NUR ---
ELIMINATION Patient had a large bowel movement, eliezer care provided and partial linen change done with the assistance of Paula ONTIVEROS. Will continue to monitor patient closely.
--- NOTE | 2020-01-12 17:15 | NUR ---
FAMILY Patient received phone call from his daughter,confirmed password, was able to speak to her.
[2020-01-12] MEDS ORDERED: TPN PER PHARMACY IV NR ×12 (20:00)
--- NOTE | 2020-01-12 20:00 | NUR ---
PT AWAKE, RESTLESS, PAEZ, ORIENTED ONLY TO SELF, 4LNC PT TACHYPNEIC 27 WITH AUDIBLE WHEEZES, WEAK COUGH, SA02 90-94%, CLEANSED OF SMALL LOOSE BM, SEE INTERVENTIONS FOR HEAD TO TOE ASSESSMENT, DR GUERRA CALLED UNIT, RECIEVED ORDERS DECADRON 4 MG IV X 1 NOW AND SOLUMEDROL 40 MG Q 12HRS
[2020-01-12] MEDS ORDERED: DexAMETHasone SOD PHOS 4 MG/1ML SDV INJ IV ONE (20:30)
[2020-01-12] MEDS ORDERED: DexAMETHasone SOD PHOS 4 MG/1ML SDV INJ ONE (20:33)
[2020-01-12] MEDS: methylPREDNISolone SOD SUCC 40 MG/ML VL IV SCH (22:00)
[2020-01-12] MEDS: ATORVASTATIN 20 MG TAB PO SCH (22:00)
--- NOTE | 2020-01-12 22:00 | NUR ---
NO AUDIBLE WHEEZES AT THIS TIME, REMAINS ON 4L NC
[2020-01-13] VITALS (10 sets, daily range): BP systolic 117–155; BP diastolic 66–96
--- NOTE | 2020-01-13 | NUR ---
PT REMAINS AWAKE, PT HAVING AUDIBLE WHEEZES, MED BANNER TX TO FOLLOW
[2020-01-13] MEDS: ACCU-CHEK COMFORT CURVE STRIP VI SCH ×4 (00:01→18:11)
[2020-01-13] MEDS ORDERED: EPINEPHrine HCL 0.5 ML NEB NEB ONE (00:15)
[2020-01-13] MEDS: IPRATROPIUM BROM 0.5 MG/2.5ML INH SOL NEB SCH ×5 (00:37→23:49)
[2020-01-13] MEDS: ALBUTEROL SULF 2.5 MG/0.5ML(0.5%) NEB SOLN NEB SCH ×5 (00:37→23:49)
[2020-01-13] MEDS: ACETYLCYSTEINE 10 %(100MG/ML) SOL 4ML NEB SCH ×5 (00:37→23:53)
[2020-01-13] MEDS: LINEZOLID 600MG/300ML 300 ML IV SCH ×2 (02:57→14:30)
[2020-01-13] MEDS: PIPERACILLIN-TAZOB 3.375GM 100 ML IV SCH ×2 (05:37→11:15)
[2020-01-13] MEDS: methylPREDNISolone SOD SUCC 40 MG/ML VL IV SCH ×2 (06:17→18:22)
[2020-01-13] MEDS: metroNIDAZOLE 500MG/100ML 100 ML IV SCH (06:46)
[2020-01-13] MEDS: InsuLIN REG 1unit/0.01ml Soln (100units/ml) SC SCH ×4 (07:00→18:11)
[2020-01-13 08:34] LABS: Potassium 3.9 mmol/L (3.5-5.1)
[2020-01-13 08:47] LABS: Albumin 2.5 g/dL (3.4-5.0); BUN/Creatinine Ratio 26.9; Bilirubin, Total 0.6 mg/dL (0.2-1.0); Calcium 8.5 mg/dL (8.5-10.1); Magnesium 2.4 mg/dL (1.6-2.6); Phosphorus 2.5 mg/dL (2.5-4.90); Total Protein 6.8 g/dL (6.4-8.2)
[2020-01-13] MEDS: SODIUM CHLOR 0.9% PF (SALINE LOCK) 10ML VIAL/SYR IV SCH ×2 (10:00→22:00)
[2020-01-13] MEDS: PANTOPRAZOLE 40 MG/10 ML VIAL INJ IV SCH (10:00)
[2020-01-13] MEDS: ENOXAPARIN SOD 40 MG/0.4 ML SYRINGE SC SCH (10:03)
--- NOTE | 2020-01-13 10:40 | NUR ---
WOUND CARE NOTE: Wound care in to see patient for skin integrity monitoring. Patient continue resting in ICU low air loss bed in Director Channel bed #4. Patient has been extubated and now awake,alert and follow simple direction. Patient appears to be in no pain using [place] Sage Faces Pain Scale. He needs assistance in turning and repositioning and his Estevan score is 10. Skin assessment done with the assistance of patient's nurse, RAMA Avila. Patient developed mild moisture associated dermatitis to perirectal area due to multiple episode of loose stools. Kira care given and applied Sure Prep skin protectant to lower buttocks and perirectal area. No pressure injury noted. Repositioned for comfort facing his Lt side,redistributed pressure points with pillows. Patient tolerated well. RAMA Avila at bedside. RECOMMENDATION: BID/PRN cleaning and application of Sure Prep skin protectant to lower buttocks perirectal as preventative, continue with skin/wound plan of care, frequent kira care/check, keep clean and dry, continue monitoring by wound care while patient's Estevan score is <18.
[2020-01-13] MEDS ORDERED: PIPERACILLIN TAZOB 2.25 GM IV ONE (10:53)
[2020-01-13] MEDS ORDERED: LINEZOLID 600MG/300ML 300 ML IV ONE (10:53)
[2020-01-13] MEDS: TPN PER PHARMACY IV NR ×11 (20:05)
[2020-01-13] MEDS: ATORVASTATIN 20 MG TAB PO SCH (22:00)
[2020-01-13] MEDS: MORPHINE SULF INJ 2 MG/ML SYRINGE 1ML IV PRN (23:14)
[2020-01-13] MEDS: LORazepam 2MG/ML-1ML VIAL IV PRN (23:14)
[2020-01-14] VITALS (14 sets, daily range): BP systolic 104–144; BP diastolic 63–96
[2020-01-14] MEDS: LINEZOLID 600MG/300ML 300 ML IV SCH ×2 (03:08→14:56)
[2020-01-14 04:13] LABS: Albumin 2.3 g/dL (3.4-5.0); BUN/Creatinine Ratio 33.3; Calcium 7.7 mg/dL (8.5-10.1); Magnesium 2.1 mg/dL (1.6-2.6)
[2020-01-14 04:16] LABS: Bilirubin, Total 0.4 mg/dL (0.2-1.0); Total Protein 6.3 g/dL (6.4-8.2)
[2020-01-14] MEDS: IPRATROPIUM BROM 0.5 MG/2.5ML INH SOL NEB SCH ×4 (05:48→23:17)
[2020-01-14] MEDS: ALBUTEROL SULF 2.5 MG/0.5ML(0.5%) NEB SOLN NEB SCH ×4 (05:48→23:17)
[2020-01-14] MEDS: ACETYLCYSTEINE 10 %(100MG/ML) SOL 4ML NEB SCH ×4 (05:49→23:17)
[2020-01-14] MEDS: ACCU-CHEK COMFORT CURVE STRIP VI SCH ×4 (06:00→17:35)
[2020-01-14] MEDS: methylPREDNISolone SOD SUCC 40 MG/ML VL IV SCH ×2 (06:00→17:44)
[2020-01-14] MEDS: InsuLIN REG 1unit/0.01ml Soln (100units/ml) SC SCH ×4 (06:29→17:44)
--- NOTE | 2020-01-14 06:45 | NUR ---
PATIENT'S CONDITION OVERALL IMPROVED, ORIENTED AND COOPERATIVE, VS STABLE, TWO LOOSE STOOLS, UO 850, EATS 75-80% OF HIS PUREED , STILL ON TPN. NO FURTHER STRIDOR, SATS 92-96 ON 4L NC.
[2020-01-14] MEDS: ENOXAPARIN SOD 40 MG/0.4 ML SYRINGE SC SCH (10:00)
[2020-01-14] MEDS: SODIUM CHLOR 0.9% PF (SALINE LOCK) 10ML VIAL/SYR IV SCH ×2 (10:00→21:25)
[2020-01-14] MEDS: PANTOPRAZOLE 40 MG/10 ML VIAL INJ IV SCH (10:01)
--- NOTE | 2020-01-14 11:00 | NUR ---
Pt. speaking on landline telephone with sonJosh. Smiles and laughs and is appropriate.
--- NOTE | 2020-01-14 14:25 | NUR ---
Pt. up ambulating via walker with moderate assist by Physical Therapy. Tolerates activity well. Verbalized understanding re: will be transferred to private room shortly.
--- NOTE | 2020-01-14 14:29 | NUR ---
Nutrition Followup Note Wt 88.6 kg Pt extubated 0n 01/09, sleeping when rounded this am. Pt is now advanced to pureed diet with poor PO of < 50% x 3 per RN doc. Pt is with TPN @80 ml/hr providing 1530 kcal, 120g protein and 1050 NPCs. PN support provides 79-88% of est energy needs and 142-171% of est protein needs. Est energy needs 8159-2706 kcal (18-20 kcal/kg BW 96kg), Est protein needs 70-84g (1-1.2g/kg IBW 70kg). Will monitor and reassess prn. Labs: BUN 25 H CA 7.7 L GLU 233 H ALB 2.3 L BM: Pt had 2 BM yesterday per RN note Skin: BS 16 mod risk, full details in adult day care worker note. PES: Inadequate oral intake r/t current medical condition aeb pt with NPO diet order Comments: Will continue to monitor PO status, PN tolerance, skin status, pertinent labs and weight trends. Will f/u in 2-3 days 1) Continue TPN to meet >75% of needs if PO continues to be low 2) consider ensure enlive 1 carton bid if PO is low 3) Continue current plan of care
--- NOTE | 2020-01-14 14:30 | NUR ---
JUAN report given to RAMA Chawla Addendum: 01/14/20 at 2030 by ERICA TAO RN Amended: Links added.
--- NOTE | 2020-01-14 14:40 | NUR ---
Pt. transferred in stable condition to room 289B via w/c by Caroline Lopez. All personal belongings sent with pt. Endorsed to RAMA Chawla on arrival. Addendum: 01/14/20 at 2029 by ERICA TAO RN Amended: Links added.
--- NOTE | 2020-01-14 14:43 | NUR ---
DOWNGRADE FROM ICU Patient is alert and oriented x3, patient is confused of situation, he was reoriented. Bed is locked, in the lowest position, side rails up x2 and call light is in reach. He was encouraged to call for assistance as needed.
--- NOTE | 2020-01-14 15:07 | NUR ---
PT AMBULATED 120 FT USING FWW AROUND CATHLAB W/ CORRIE. PT HAS MOMENTS OF CONFUSION HOWEVER, PT IS PLEASANT TO WORK WITH. PT REPORTS NO C/O PAIN AND OR DISCOMFORT. Addendum: 01/14/20 at 1508 by Tabatha Maier PT Amended: Links added.
--- NOTE | 2020-01-14 18:15 | NUR ---
CALL FROM FAMILY call from patient's daughter Caron. After verification of password she was updated on the plan of care and she verbalized understanding. All questions answered. Call then transferred to the patient's room.
[2020-01-14] MEDS: TPN PER PHARMACY IV NR ×11 (19:27)
--- NOTE | 2020-01-14 19:30 | NUR ---
Opening Shift Note Assumed care of patient, awake and alert. No S/S of distress/SOB or pain. Instructed on POC and to call for assist PRN. Bed in lowest locked position, call light within reach, side rails up x2, fall precautions in place. Will continue to monitor for changes Q1hr and PRN.
[2020-01-14] MEDS: ATORVASTATIN 20 MG TAB PO SCH (21:26)
[2020-01-15] MEDS: ACCU-CHEK COMFORT CURVE STRIP VI SCH ×2 (00:03→06:26)
[2020-01-15] MEDS: LINEZOLID 600MG/300ML 300 ML IV SCH ×2 (03:09→14:46)
[2020-01-15] MEDS: InsuLIN REG 1unit/0.01ml Soln (100units/ml) SC SCH ×2 (06:00)
[2020-01-15 06:08] VITALS: BP 122/67
[2020-01-15] MEDS: methylPREDNISolone SOD SUCC 40 MG/ML VL IV SCH ×2 (06:26→17:46)
[2020-01-15] MEDS: IPRATROPIUM BROM 0.5 MG/2.5ML INH SOL NEB SCH ×3 (06:56→19:21)
[2020-01-15] MEDS: ACETYLCYSTEINE 10 %(100MG/ML) SOL 4ML NEB SCH ×3 (06:56→18:00)
[2020-01-15] MEDS: ALBUTEROL SULF 2.5 MG/0.5ML(0.5%) NEB SOLN NEB SCH ×3 (06:56→18:00)
--- NOTE | 2020-01-15 07:30 | NUR ---
Opening Shift Note Assumed care of patient, awake and alert. No S/S of distress/SOB or pain. Instructed on POC and to call for assist PRN. Bed in lowest locked position, call light within reach, side rails up x2, bed alarm on. Will continue to monitor for changes Q1hr and PRN.
[2020-01-15] MEDS: PANTOPRAZOLE 40 MG/10 ML VIAL INJ IV SCH (08:58)
[2020-01-15 09:00] VITALS: BP 137/83
[2020-01-15] MEDS: SODIUM CHLOR 0.9% PF (SALINE LOCK) 10ML VIAL/SYR IV SCH ×2 (09:02→21:27)
[2020-01-15] MEDS: ENOXAPARIN SOD 40 MG/0.4 ML SYRINGE SC SCH (09:02)
--- NOTE | 2020-01-15 11:10 | NUR ---
ROUNDS DR Dimas LÓPEZ AT BEDSIDE
[2020-01-15 11:41] LABS: INR 1.18 (0.9-1.15); Partial Thromboplastin Time 26.2 sec (23.0-31.2)
--- NOTE | 2020-01-15 11:46 | NUR ---
SPOKE WITH FAMILY SPOKE WITH NAVVANIADY, DAUGHTER RE: PATIENT LIVING ARRANGEMENTS. PER NORM; HE LIVES WITH SISTER MAY, SHE WOULD LIKE TO SPEAK WITH HER AUNT AND BROTHER BEFORE MAKING A DECISION. WILL CONTINUE TO MONITOR
--- NOTE | 2020-01-15 12:00 | NUR ---
RECEIVED REPORT FROM SKYE RN, PATIENT ALERT AND ORIENTED X3, NOT IN DISTRESS, WHEEZING LS IN BILATERAL LUNG LOBES, RR=20, DEEP BREATHING AND BREATHING WAS ENCOURAGED, INCENTIVE SPIROMETER EDUCATION AND ENCOURAGEMENT PROVIDED, DEMONSTRATED AND VERBALIZED UNDERSTANDING, DENIED CHEST PAIN AND SOB, S TACH R=102 ON TELE MONITOR, ABDOMINAL SURGICAL SITE DRY AND INTACT AND STITCHED, OPEN TO AIR, NO EDEMA OR REDNESS NOTED, ABDOMEN SOFT WITH ACTIVE BS, LAST BM THIS MORNING REPORTED, GIANG CATH IN PLACE AND PATENT, DRAINING CLEAR YELLOW URINE, GENERAL SKIN INTACT WARM TO TOUCH, RADIAL AND PEDAL PULSES PALPABLE, CAP REFILL <3 SECONDS, DENIED PAIN, HEAD OF BED ELEVATED, BED ON LOW POSITION, RAILS UP X2, CALL LIGHT ON REACH, WILL CONTINUE MONITORING.
--- NOTE | 2020-01-15 14:56 | NUR ---
TOLERATED PROVIDED LUNCH TRAY WELL, RESTING ON BED, 450 CC OF CLEAR YELLOW URINE OUT PUT NOTED, D/C GIANG CATH ORDERED, TOLERATED WELL, WILL CONTINUE MONITORING.
[2020-01-15 17:24] VITALS: BP 152/86
--- NOTE | 2020-01-15 19:10 | NUR ---
NOT IN DISTRESS, C/O HEAD ACH L=04/17, REGULAR TYLENOL PO PRN WAS GIVEN, HEAD ACH SUBSIDED REPORTED, SITTING ON BSC AT THIS MOMENT REPORT WAS GIVEN TO THE ALL TERRAIN VEHICLE TECHNICIAN RN.
[2020-01-15] MEDS: ATORVASTATIN 20 MG TAB PO SCH (21:28)
[2020-01-15 22:00] VITALS: BP 148/80
[2020-01-16] MEDS: LINEZOLID 600MG/300ML 300 ML IV SCH ×2 (02:41→15:00)
[2020-01-16 05:00] VITALS: BP 132/73
[2020-01-16] MEDS: methylPREDNISolone SOD SUCC 40 MG/ML VL IV SCH ×2 (05:40→17:40)
[2020-01-16] MEDS: ALBUTEROL SULF 2.5 MG/0.5ML(0.5%) NEB SOLN NEB SCH ×5 (06:30→23:05)
[2020-01-16] MEDS: ACETYLCYSTEINE 10 %(100MG/ML) SOL 4ML NEB SCH ×5 (06:31→23:05)
[2020-01-16] MEDS: IPRATROPIUM BROM 0.5 MG/2.5ML INH SOL NEB SCH ×5 (06:31→23:05)
--- NOTE | 2020-01-16 08:15 | NUR ---
Opening Shift Note Received report from shift stacker RN, Assumed care of patient, awake and alert. No S/S of distress/SOB or pain. Abdominal midline incision dry and intact jose c, no redness noted. Instructed on POC for scheduled procedure and to call for assist PRN, will continue to monitor for changes Q1hr and PRN.
[2020-01-16 08:28] VITALS: BP 152/85
[2020-01-16 09:21] LABS: Basophils # (auto) 0 10 ^3/uL (0-0.2); Basophils % (auto) 0.1 % (0.0-2.0); Eosinophils # (auto) 0 10 ^3/uL (0-0.8); Monocytes # (auto) 0.9 10 ^3/uL (0-1.3)
[2020-01-16] MEDS: PANTOPRAZOLE 40 MG/10 ML VIAL INJ IV SCH (09:22)
[2020-01-16] MEDS: SODIUM CHLOR 0.9% PF (SALINE LOCK) 10ML VIAL/SYR IV SCH ×2 (09:22→22:00)
[2020-01-16 09:23] LABS: Hematocrit 36.4 % (41.0-53.0); Hemoglobin 12.1 g/dL (13.5-17.5); Lymphocytes # (auto) 1.1 10 ^3/uL (0.4-5.4); Lymphocytes % (auto) 9.4 % (10.0-50.0); Mean Corpuscular Hemoglobin 29.7 pg (28.0-32.0); Mean Corpuscular Hgb Conc. 33.1 g/dL (32.0-36.0); Mean Corpuscular Volume 89.7 fL (80.0-100.0); Monocytes % (auto) 7.7 % (0.0-12.0); Neutrophils % (auto) 82.8 % (37.0-80.0); Platelet Count (auto) 494 10^3/uL (140-450); Red Blood Cells 4.06 10^6/uL (4.5-5.90); Red Cell Distribution Width 14.6 % (11.8-14.3); White Blood Cell 12.1 10^3/uL (4.4-10.8)
--- NOTE | 2020-01-16 09:25 | NUR ---
patient down at chemical laboratory scientist for scheduled procedure. No signs of distress noted.
[2020-01-16 09:54] LABS: Albumin 2.9 g/dL (3.4-5.0); BUN/Creatinine Ratio 29.7; Bilirubin, Total 0.6 mg/dL (0.2-1.0); Calcium 8.7 mg/dL (8.5-10.1)
--- NOTE | 2020-01-16 10:34 | NUR ---
HOLD P.T. TODAY. CHYNANET IS GOING DOWN TO HAND BINDER STRIPPER.
--- NOTE | 2020-01-16 10:41 | NUR ---
SPOKE WITH FAMILY SPOKE WITH NORM CHOPRA, DAUGHTER RE: PATIENT LIVING ARRANGEMENTS. PER NORM; HE LIVES WITH SISTER MAY, SHE WOULD LIKE TO SPEAK WITH HER AUNT AND BROTHER BEFORE MAKING A DECISION. NORM WILL FOLLOW UP WITH FAMILY RE: LIVING SITUATION AND PATIENTS NEEDS. WILL CONTINUE TO MONITOR Addendum: 01/16/20 at 1043 by SKYE GRAHAM RN RN NORM IS CONCERNED FOR PATIENT'S CONFUSION, REQUESTING POSSIBLY HOME HEALTH ASSISTANCE IF POSSIBLE. NOTIFIED DR Dimas LÓPEZ
[2020-01-16] MEDS ORDERED: LIDOCAINE 2%HCL (LOCAL ANESTH.) INJ 20ML MDV ONE (11:39)
[2020-01-16] MEDS ORDERED: IOHEXOL 350 MG/ML 100ML IJ ONE (11:40)
--- NOTE | 2020-01-16 11:47 | NUR ---
Nutrition Followup Note Wt 100.3kg Pt was off the floor at time of rounds. Pt no longer receiving TPN, Pt is with improved po intake aeb pt with a pureed diet with 58% po intake x 2 days per Rn note. Est energy needs 9932-3207 kcal (18-20 kcal/kg BW 96kg), Est protein needs 70-84g (1-1.2g/kg IBW 70kg). Will monitor and reassess prn. Labs: BUN 27H, GLUC 181H, Alb 2.9L BM: Pt had 1 BM today per RN note Skin: BS 17 mod risk, full details in resident care manager note. PES: partially resolved, pt diet adv with fair po intake. Inadequate oral intake r/t current medical condition aeb pt with NPO diet order Comments: Will continue to monitor PO intake, skin status, pertinent labs and weight trends. Will f/u in 3-5 days 1) Continue with pureed diet 2) consider ensure enlive 1 carton bid if PO is low 3) Continue current plan of care
[2020-01-16] MEDS ORDERED: VERAPAMIL 2.5MG/ML INJ 2ML VIAL IV ONE (11:55)
[2020-01-16] MEDS ORDERED: fentaNYL CITRATE 100 MCG/2 ML VL ONE (11:55)
[2020-01-16] MEDS ORDERED: MIDAZOLAM HCL 1MG/1ML-2 ML VIAL ONE (11:56)
[2020-01-16] MEDS ORDERED: SODIUM CHL 0.9% 50 ML ONE ×2 (12:24→12:54)
[2020-01-16] MEDS ORDERED: ANGIOMAX 250 MG VIAL IV ONE ×2 (12:24→12:54)
[2020-01-16] MEDS ORDERED: CLOPIDOGREL BISULFATE 75 MG TAB ONE (13:22)
[2020-01-16] MEDS ORDERED: ASPirin 81 mg TAB ONE (13:22)
--- NOTE | 2020-01-16 13:28 | NUR ---
Patient brought to recovery via bed, report received from RAMA Carney and Shari RN. Patient is AO x 4, denies pain. NAD noted. Right groin site is benign no s/s of bleeding or hematoma formation. Dressing is in place, CDI. Positive circulation, movement and sensation noted to BLE. Patient educated on post-procedure care instructions and flat time, verbalized understanding.
--- NOTE | 2020-01-16 13:42 | NUR ---
RECEIVED REPORT FROM BILINGUAL TEACHER ASSISTANT KAYLA ONTIVEROS PER KAYLA PATIENT GOT A STENT AND ANGIOPLASTY OF THE SUPERIOR MESENTERIC ARTERY VIA RIGHT GROIN ACCESS BY MD MCCARTHY. PATIENT VITALS 122/78, 99 HEART RATE, 97% O2 SATURATION ON 2L NC, 16 RESPIRATIONS.
--- NOTE | 2020-01-16 13:42 | NUR ---
Report given to RAMA Robertson.
--- NOTE | 2020-01-16 13:43 | NUR ---
Patient is resting in bed with eyes closed, NAD noted. Even rise and fall of chest observed. Right groin site remains unchanged.
--- NOTE | 2020-01-16 13:50 | NUR ---
1200 SCHEDULED HHN TX NOT GIVEN. PT NOT IN ROOM , OFF UNIT AT PROCEDURE.
--- NOTE | 2020-01-16 14:02 | NUR ---
PATIENT BACK TO UNIT PATIENT BACK FROM ROAD MECHANIC, NO SIGNS OF DISTRESS. R GROIN ACCESS DRESSING INTACT, NO SIGNS OF BLEEDING AND NO TENDERNESS PRESENT. PATIENT INSTRUCTED TO LAY FLAT UNTIL 4 PM DUE TO PROCEDURE DONE, PATIENT VERBALIZED UNDERSTANDING. WILL CONTINUE TO MONITOR.
--- NOTE | 2020-01-16 14:03 | NUR ---
Patient taken to telemetry unit via bed by this RN and RAMA Gillespie. irrigation manager in place. NAD noted upon departure. RAMA Robertson present at bedside to receive patient and witness right groin site benign no s/s of bleeding or hematoma formation. Bed set in lowest locked position with side rails up x 2, call light is within reach and bed alarm set on for safety. Care endorsed to RAMA Robertson.
[2020-01-16 14:30] VITALS: BP 143/88
--- NOTE | 2020-01-16 15:05 | NUR ---
SPOKE WITH FAMILY SPOKE WITH NORM CHOPRA, DAUGHTER RE: PATIENT LIVING ARRANGEMENTS. PER NORM; SHE WOULD BE ABLE TO CARE FOR PATIENT FOR SHORT TERM, WOULD LIKE HOME HEALTH ARRANGED TO ASSIST WITH PATIENTS NEEDS. WILL CONTINUE TO MONITOR
--- NOTE | 2020-01-16 15:45 | NUR ---
COVERING FOR PRIMARY NURSE FOR LUNCH,PATIENT BED ALARM WENT OFF,PATIENT CHECKED,GOT OOB STAND UP BY BEDSIDE TO USED URINAL,PATIENT INSTRUCTED TO RETURN TO BED,RIGHT GROIN CHECKED,NO BLEEDING,SOFT ,NO HEMATOMA,SKIN WARM TO TOUCH,BED ALARM RE ACTIVATED,CALL LIGHT WITHIN REACH PATIENT REMINDED INSTRUCTED TO CALL FOR ASSISTANCE.
[2020-01-16 17:00] VITALS: BP 124/79
--- NOTE | 2020-01-16 17:17 | NUR ---
Pt is an alert but very confused male that resided with family prior to admission. Pt resides with sister, Laly, and has a daughter , yoko, that is out of the area. Per Yoko, pt will be returning home and is requesting HH for pt upon discharge. Angelic and Laly will be assisting pt once he goes home. Will followup with medical group regarding contracted vendor for HH. Will continue to monitor and provide intervention as appropriate.
[2020-01-16] MEDS: ATORVASTATIN 20 MG TAB PO SCH (22:00)
[2020-01-16 22:45] VITALS: BP 123/77
[2020-01-17] MEDS: LINEZOLID 600MG/300ML 300 ML IV SCH ×2 (03:00→15:00)
[2020-01-17 04:00] VITALS: BP 131/78
[2020-01-17] MEDS: methylPREDNISolone SOD SUCC 40 MG/ML VL IV SCH ×2 (05:34→18:00)
[2020-01-17] MEDS: ALBUTEROL SULF 2.5 MG/0.5ML(0.5%) NEB SOLN NEB SCH ×2 (07:14→12:31)
[2020-01-17] MEDS: IPRATROPIUM BROM 0.5 MG/2.5ML INH SOL NEB SCH ×2 (07:14→12:31)
[2020-01-17] MEDS: ACETYLCYSTEINE 10 %(100MG/ML) SOL 4ML NEB SCH ×2 (07:15→12:31)
[2020-01-17 09:00] VITALS: BP_SYST 131; BP_SYST 142; BP_DIAS 77; BP_DIAS 88
[2020-01-17] MEDS: SODIUM CHLOR 0.9% PF (SALINE LOCK) 10ML VIAL/SYR IV SCH (09:45)
[2020-01-17] MEDS: PANTOPRAZOLE 40 MG/10 ML VIAL INJ IV SCH (09:45)
[2020-01-17] MEDS ORDERED: CLOPIDOGREL BISULFATE 75 MG TAB PO SCH (10:00)
[2020-01-17] MEDS ORDERED: ASPirin 81 mg TAB PO SCH (10:00)
--- NOTE | 2020-01-17 11:04 | NUR ---
Received a call from Leonila Menjivar at [facility] and stated they are not getting the remote reviews, stated I would talk with Anand and have the remote team fax the clinicals to her. [phone]
[2020-01-17 13:00] VITALS: BP 133/76
--- NOTE | 2020-01-17 15:09 | NUR ---
BAUTISTA REMOVED FROM ABDOMEN. PT TOLERATED WITHOUT DIFFICULTY.
--- NOTE | 2020-01-17 15:10 | NUR ---
PT PULSE OXIMETRY 93% ON ROOM AIR AFTER OXYGEN ON BEEN OFF FOR 15 MINUTES.
--- NOTE | 2020-01-17 16:03 | NUR ---
LEFT MESSAGE FOR PT DAUGHTER NORM TO CALL FACILITY. PT TO BE DISCHARGED HOME TODAY.
--- NOTE | 2020-01-17 16:11 | NUR ---
DAUGHTER NORM RETURNED CALL, STATED SHE WOULD BE HERE IN A FEW HOURS TO APPOINTMENT MANAGER PATIENT, SHE LIVES 2 HOURS AWAY. PT AWARE.
[2020-01-17 17:46] VITALS: BP 133/76
--- NOTE | 2020-01-17 18:57 | NUR ---
PICC LINE REMOVED FROM RIGHT ARM. TIP INTACT. NO BLEEDING NOTED. PRESSURE APPLIED, PRESSURE DRESSING APPLIED. PT SIGNED DISCHARGE PAPERWORK. TELE BOX REMOVED. PT DISCHARGED HOME WITH DAUGHTER. DISCHARGE INSTRUCTIONS GIVEN TO PT DAUGHTER NORM.
== END 2020-01-17 18:50 | disposition home or self-care (01) | DRG 853 ==
LOC: EDBD 06:47 → ER 06:47 → ICU WEST 06:48 → ER 12:10 → CATH ICU 01-08 15:14 → TELE-WESTW 01-14 14:46
PROVIDERS: ADMIT Family Medicine; ATTEND Hospitalist
PROC: 0DTF0ZZ Resection of Right Large Intestine, Open Approach (ICD-10-PCS; 2019-12-29)
PROC: 0D1L0Z4 Bypass Transverse Colon to Cutaneous, Open Approach (ICD-10-PCS; 2019-12-29)
PROC: 5A1955Z Respiratory Ventilation, Greater than 96 Consecutive Hours (ICD-10-PCS; 2019-12-29)
PROC: 0BH17EZ Insertion of Endotracheal Airway into Trachea, Via Natural or Artificial Opening (ICD-10-PCS; 2019-12-29)
PROC: 02HV33Z Insertion of Infusion Device into Superior Vena Cava, Percutaneous Approach (ICD-10-PCS; 2020-01-01)
PROC: 04753DZ Dilation of Superior Mesenteric Artery with Intraluminal Device, Percutaneous Approach (ICD-10-PCS; principal; 2020-01-16)
PROC: B4141ZZ Fluoroscopy of Superior Mesenteric Artery using Low Osmolar Contrast (ICD-10-PCS; 2020-01-16)
PROC: B41F1ZZ Fluoroscopy of Right Lower Extremity Arteries using Low Osmolar Contrast (ICD-10-PCS; 2020-01-16)
DX: A41.9 Sepsis, unspecified organism (principal); K55.049 Acute infarction of large intestine, extent unspecified; J96.00 Acute respiratory failure, unspecified whether with hypoxia or hypercapnia; I77.4 Celiac artery compression syndrome; K55.1 Chronic vascular disorders of intestine; J90 Pleural effusion, not elsewhere classified; J44.1 Chronic obstructive pulmonary disease with (acute) exacerbation; Z20.828 Contact with and (suspected) exposure to other viral communicable diseases; E66.01 Morbid (severe) obesity due to excess calories; E78.5 Hyperlipidemia, unspecified; I35.0 Nonrheumatic aortic (valve) stenosis; I10 Essential (primary) hypertension; E04.1 Nontoxic single thyroid nodule; D64.9 Anemia, unspecified; G40.909 Epilepsy, unspecified, not intractable, without status epilepticus; I25.10 Atherosclerotic heart disease of native coronary artery without angina pectoris; F32.9 Major depressive disorder, single episode, unspecified; E78.00 Pure hypercholesterolemia, unspecified; G89.29 Other chronic pain; M19.90 Unspecified osteoarthritis, unspecified site; Z68.30 Body mass index [BMI] 30.0-30.9, adult; Z79.82 Long term (current) use of aspirin; Y92.89 Other specified places as the place of occurrence of the external cause; Z91.040 Latex allergy status; Z79.899 Other long term (current) drug therapy
CPT/HCPCS: 36415; 36569; 36600; 37236; 71045; 71260; 74176; 74177; 76000; 76536; 76937; 80053; 80061; 81001; 82040; 82150; 82805; 82962; 83605; 83690; 83735; 83880; 84100; 84132; 84443; 84478; 84484; 85025; 85610; 85730; 86850; 86900; 86901; 87040; 87070; 87077; 87081; 87086; 87186; 87205; 87426; 92610; 93005; 93306; 94003; 94640; 96361; 96365; 96375; 97110; 97116; 97163; 97530; 99152; 99153; 99291; A4618; C9113; G0378; J0330; J0696; J1100; J1450; J1815; J2250; J2405; J2543; J2704; J3480; J3490; J7060; J7131

== ENCOUNTER 2020-08-25 07:02 | Emergency (ER) | payer OTHER ==
[~2020-08-25] VITALS: Ht 170.2 cm; Wt 83.9 kg
[2020-08-25 07:54] LABS: Basophils # (auto) 0.1 10 ^3/uL (0-0.2); Basophils % (auto) 0.5 % (0.0-2.0); Eosinophils # (auto) 0.1 10 ^3/uL (0-0.8); Eosinophils % (auto) 0.9 % (0.0-7.0); Hematocrit 42.1 % (41.0-53.0); Lymphocytes # (auto) 2.2 10 ^3/uL (0.4-5.4); Lymphocytes % (auto) 18.2 % (10.0-50.0); Mean Corpuscular Hemoglobin 28.9 pg (28.0-32.0); Mean Corpuscular Hgb Conc. 33.2 g/dL (32.0-36.0); Monocytes # (auto) 0.8 10 ^3/uL (0-1.3); Monocytes % (auto) 6.7 % (0.0-12.0); Neutrophils # (auto) 9.1 10 ^3/uL (1.6-8.6); Neutrophils % (auto) 73.7 % (37.0-80.0); Red Blood Cells 4.84 10^6/uL (4.5-5.90); Red Cell Distribution Width 14.3 % (11.8-14.3); White Blood Cell 12.3 10^3/uL (4.4-10.8)
[2020-08-25 08:11] LABS: Urine Bacteria NONE SEEN /hpf (None Seen); Urine Blood 3+ /uL (Negative); Urine Hyaline Cast FEW /lpf (0 - 2); Urine Mucus FEW (None Seen); Urine Specific Gravity 1.027 (1.001-1.035); Urine WBC 2 /hpf (0 - 3)
[2020-08-25 08:11] LABS: Albumin 3.4 g/dL (3.4-5.0); Anion Gap 6 (5-15); Blood Urea Nitrogen 27 mg/dL (7-18); Calcium 8.1 mg/dL (8.5-10.1); Carbon Dioxide 24 mmol/L (21-32); Chloride 108 mmol/L (98-107); GFR African American 63 mL/min; GFR Non-African American 52 mL/min; Glucose 150 mg/dL (74-106); Potassium 4.3 mmol/L (3.5-5.1); Sodium 138 mmol/L (136-145)
[2020-08-25 08:16] LABS: Alanine Aminotransferase 28 U/L (16-61); Alkaline Phosphatase 107 U/L (45-117); Aspartate Aminotransferase 20 U/L (15-37); Bilirubin, Total 0.2 mg/dL (0.2-1.0)
[2020-08-25] MEDS ORDERED: METOCLOPRAMIDE HCL 5MG/ml INJ 2ml VIAL IV ONE (08:30)
[2020-08-25] MEDS ORDERED: KETOROLAC TROMETH 30 MG/ML 1ML VIAL IV ONE (08:30)
[2020-08-25 12:00] VITALS: BP 96/60
== END 2020-08-25 12:27 | disposition home or self-care (01) ==
LOC: EDBD 07:02 → ER 07:02
DX: N13.2 Hydronephrosis with renal and ureteral calculous obstruction (principal); E11.21 Type 2 diabetes mellitus with diabetic nephropathy; J44.9 Chronic obstructive pulmonary disease, unspecified; I10 Essential (primary) hypertension; E78.5 Hyperlipidemia, unspecified; Z91.040 Latex allergy status
CPT/HCPCS: 36415; 74176; 80053; 81001; 84484; 85025; 93005; 96374; 96375; 99285; J1885; J2765